=== PATIENT | male | born 1955 | race African-American/Black ===

== ENCOUNTER 2018-09-20 12:47 | Observation (INO) | payer MEDICARE, OTHER ==
[~2018-09-20] VITALS: Ht 172.7 cm; Wt 74.1 kg
[~2018-09-20 12:47] MED LIST: CALC667T2 PO; ERGO500014 PO; IBUP-1542 PO; SILV20CR13 TOP; SODI15OR8 PO; SODI650T PO
[2018-09-20] MEDS ORDERED: ZOLP5TAB PO (13:35)
[2018-09-20] MEDS ORDERED: BETH25TA39 PO (13:36)
[2018-09-20] MEDS ORDERED: SUCR1TAB56 PO (13:37)
[2018-09-20] MEDS ORDERED: DOCU-144 PO (13:38)
[2018-09-20] MEDS ORDERED: CLON-379 PO (13:38)
[2018-09-20] MEDS ORDERED: BISA10SU55 RC (13:39)
[2018-09-20] MEDS ORDERED: ENAL20TA73 PO (13:41)
[2018-09-20] MEDS ORDERED: EPOE40002 SC (13:42)
[2018-09-20] MEDS ORDERED: FER325 PO (13:44)
[2018-09-20] MEDS ORDERED: GLIP5TAB13 PO (13:45)
[2018-09-20] MEDS ORDERED: FOLI-49 PO (13:45)
[2018-09-20] MEDS ORDERED: HYDR-3671 PO (13:46)
[2018-09-20] MEDS ORDERED: POTA20TA15 PO (13:46)
[2018-09-20] MEDS ORDERED: POLY17PO6 PO (13:47)
[2018-09-20] MEDS ORDERED: NOVO3I SC (13:52)
[2018-09-20] MEDS ORDERED: MORP10SO PO (13:54)
[2018-09-20] MEDS ORDERED: METO25TA4 PO (13:55)
[2018-09-20] MEDS ORDERED: UDREG PO ×2 (13:57→13:58)
[2018-09-20] MEDS ORDERED: MAG355OR14 PO (13:58)
[2018-09-20] MEDS ORDERED: ACET-2047 PO (14:24)
[2018-09-20] MEDS ORDERED: ONDA4TAB8 PO (14:24)
[2018-09-20] MEDS ORDERED: PANT40TA3 PO (14:25)
[2018-09-20] MEDS ORDERED: NEPH PO (14:25)
[2018-09-20] MEDS ORDERED: PROT946L PO (14:26)
[2018-09-20] MEDS ORDERED: LABETALOL HCL 20MG INJ IV ONE (15:00)
--- NOTE | 2018-09-20 15:07 | ERD ---
ER Documentation Chief Complaint Chief Complaint aloc hypoglycemic and htn HPI Patient is a 63-year-old male with dialysis, diabetes, and hypertension who presents with altered mental status. He was found to have a blood sugar of 24. He was given D50 and now blood sugar was 144. He was more awake and alert. Blood pressure was elevated at 200/100. He did miss dialysis yesterday. He does have a primary doctor. He was brought in by ambulance. [facility]. ROS All systems reviewed and are negative except as per history of present illness. Medications Home Meds Reported Medications Protein Supplement (Promod) 946 Ml Liquid, 30 ML PO AC A 09/20/18 Pantoprazole* (Protonix*) 40 Mg Tablet.dr, 40 MG PO BID, TAB 09/20/18 Multivit/Ca Carb/B Cmplx/Fa* (Cee-Oumar*) 1 Tab Tab, 1 TAB PO DAILY, TAB 09/20/18 Acetaminophen* (Acetaminophen*) 650 Mg Tablet, 650 MG PO Q6H PRN for PAIN AND OR ELEVATED TEMP, #30 TAB 09/20/18 Ondansetron Hcl* (Zofran*) 4 Mg Tablet, 4 MG PO Q6H PRN for NAUSEA AND OR VOMITING, TAB 09/20/18 Mag Hydrox/Al Hydrox/Simeth (Maalox Advanced Suspension) 355 Ml Oral.susp, 30 ML PO Q6 PRN for GASTROINTESTINAL UPSET 09/20/18 Metoclopramide* (Reglan*) 10 Mg/10 Ml Soln, 5 MG PO Q6 PRN for GASTROINTESTINAL UPSET, ML 09/20/18 Metoclopramide* (Reglan*) 10 Mg/10 Ml Soln, 10 MG PO Q6 PRN for GASTROINTESTINAL UPSET, ML 09/20/18 Metoprolol Tartrate* (Lopressor*) 25 Mg Tablet, 25 MG PO DAILY, #60 TAB HOLD FOR SBP <110 OR HR <60 09/20/18 Morphine Sulfate* (Morphine* Liq) 10 Mg/5 Ml Solution, 2 MG PO Q6 PRN for SEVERE PAIN LEVEL 7-10, ML 09/20/18 Insulin Aspart* (Novolog Insulin Pen*) 100 Unit/Ml Soln, 0 SC .SLIDING SCALE AC, EA 39=204 = 0 UNITS 151-200 = 2 UNITS 201-250 = 4 UNITS 251-300 = 6 UNITS 301-350 = 8 UNITS 351-400 =10 UNITS > 400 12 UNITS AND CALL MD GIVE BEFORE MEALS AT AT BEDTIME 09/20/18 Polyethylene Glycol* (Miralax*) 17 Gm Powd.pack, 17 GM PO QPM PRN for CONSTIPATION, #30 PACKET 09/20/18 Potassium Chloride* (K-Dur*) 20 Meq Tab.prt.sr, 20 MEQ PO DAILY, TAB.SA 09/20/18 Hydralazine Hcl* (Hydralazine Hcl*) 25 Mg Tab, 25 MG PO Q6H PRN for ELEVATED BLOOD PRESSURE, #60 TAB GIVE IF SBP>160 09/20/18 Glipizide* (Glipizide*) 5 Mg Tablet, 5 MG PO BID, TAB 09/20/18 Folic Acid* (Folic Acid*) 1 Mg Tablet, 1 MG PO BID, TAB 09/20/18 Ferrous Sulfate* (Ferrous Sulfate*) 325 Mg Tabec, 325 MG PO BID, TAB 09/20/18 Epoetin jorge* (Epogen*) 4,000 Unit/1 Ml Vial, 4000 UNIT SC EVERY SUNDAY, VIAL 09/20/18 Enalapril Maleate* (Vasotec*) 20 Mg Tablet, 25 MG PO Q6 PRN for ELEVATED BLOOD PRESSURE, TAB GIVE IF SBP IS >140 09/20/18 Bisacodyl (Dulcolax) 10 Mg Supp.rect, 10 MG RC EVERY 48 HOURS PRN for CONSTIPATION, SUPP.RECT 09/20/18 Docusate Sodium* (Colace*) 100 Mg Capsule, 100 MG PO DAILY, #30 CAP 09/20/18 Clonidine Hcl* (Clonidine Hcl*) 0.1 Mg Tab, 0.1 MG PO Q6 PRN for ELEVATED BLOOD PRESSURE, TAB GIVE ONLY IF SBP >180 09/20/18 Sucralfate* (Carafate*) 1 Gm Tab, 1 GM PO AC MEALS AND BEDTIME, TAB FOUR TIMES DAILY 09/20/18 Bethanechol Chloride* (Urecholine*) 25 Mg Tab, 25 MG PO QID, TAB 09/20/18 Zolpidem Tartrate* (Ambien*) 5 Mg Tablet, 5 MG PO QHS PRN for INSOMNIA, #30 TAB END 09-21-18 09/20/18 Discontinued Reported Medications Silver Sulfadiazine* (SSD*) 1% - 20 Gm Cream.gm., 1 APPLIC TOP DAILY, TUB 08/25/15 Sodium Bicarbonate* (Sodium Bicarbonate*) 650 Mg Tablet, 650 MG PO BID, TAB 08/25/15 Calcium Acetate* (Phoslo*) 667 Mg Tablet, 667 MG PO TID, TAB 08/25/15 Ibuprofen* (Ibuprofen*) 600 Mg Tablet, 600 MG PO Q6H PRN for PAIN, TAB 08/25/15 Ergocalciferol* (Drisdol* (Vitamin D2)) 50,000 Unit Capsule, 62731 UNIT PO Q7D, CAP 08/25/15 Sodium Polystyrene Sulfonate* (Kayexalate*) 15 Gm/60 Ml Susp, GM PO DAILY, ML 08/25/15 Allergies Allergies: Coded Allergies: ampicillin (Verified Allergy, Unknown, 09/20/18) sulfamethoxazole (Verified Allergy, Unknown, 09/20/18) trimethoprim (Verified Allergy, Unknown, 09/20/18) PMhx/Soc History of Surgery: Yes (amputation of toes on steph foot) Anesthesia Reaction: No Hx Neurological Disorder: No Hx Respiratory Disorders: No Hx Cardiac Disorders: No Hx Miscellaneous Medical Probl: Yes (dm) Hx Alcohol Use: Yes Hx Substance Use: Yes (hx of marijuana use) Hx Tobacco Use: No Smoking Status: Never smoker FmHx Family History: diabetes Physical Exam Vitals Vital Signs Date Temp Pulse Resp B/P (MAP) Pulse Ox O2 O2 Flow FiO2 Time Delivery Rate 09/20/18 81 18 187/110 100 Room Air 15:00 (135) 09/20/18 Nasal 2 14:08 Cannula 09/20/18 98.2 96 20 210/121 100 12:56 (150) Physical Exam Const: No acute distress Head: Atraumatic Eyes: Normal Conjunctiva ENT: Normal External Ears, Nose and Mouth. Neck: Full range of motion. No meningismus. Resp: Clear to auscultation bilaterally Cardio: Regular rate and rhythm, no murmurs Abd: Soft, non tender, non distended. Normal bowel sounds Skin: No petechiae or rashes Back: No midline or flank tenderness Ext: No cyanosis, or edema Neur: Awake and alert Result Diagram: 09/20/18 1313 09/20/18 1313 Results 24 hrs Laboratory Tests Test 09/20/18 13:13 09/20/18 13:25 White Blood Count 10.5 10^3/ul Red Blood Count 3.50 10^6/ul Hemoglobin 10.4 g/dl Hematocrit 32.3 % Mean Corpuscular Volume 92.3 fl Mean Corpuscular Hemoglobin 29.7 pg Mean Corpuscular Hemoglobin Concent 32.2 g/dl Red Cell Distribution Width 14.8 % Platelet Count 311 10^3/UL Mean Platelet Volume 10.1 fl Immature Granulocytes % 0.500 % Neutrophils % 88.4 % Lymphocytes % 5.7 % Monocytes % 4.5 % Eosinophils % 0.6 % Basophils % 0.3 % Nucleated Red Blood Cells % 0.0 /100WBC Immature Granulocytes # 0.050 10^3/ul Neutrophils # 9.3 10^3/ul Lymphocytes # 0.6 10^3/ul Monocytes # 0.5 10^3/ul Eosinophils # 0.1 10^3/ul Basophils # 0.0 10^3/ul Nucleated Red Blood Cells # 0.0 10^3/ul Prothrombin Time 14.5 Sec Prothrombin Time Ratio 1.1 INR International Normalized Ratio 1.12 Activated Partial Thromboplast Time 47.9 Sec Sodium Level 140 mmol/L Potassium Level 5.0 mmol/L Chloride Level 100 mmol/L Carbon Dioxide Level 23 mmol/L Anion Gap 17 Blood Urea Nitrogen 67 mg/dl Creatinine 11.18 mg/dl Est Glomerular Filtrat Rate mL/min 6 mL/min Glucose Level 84 mg/dl Calcium Level 9.0 mg/dl Total Bilirubin 0.0 mg/dl Direct Bilirubin 0.00 mg/dl Indirect Bilirubin 0.0 mg/dl Aspartate Amino Transf (AST/SGOT) 17 IU/L Alanine Aminotransferase (ALT/SGPT) 8 IU/L Alkaline Phosphatase 174 IU/L Troponin I < 0.012 ng/ml Total Protein 7.8 g/dl Albumin 4.3 g/dl Globulin 3.50 g/dl Albumin/Globulin Ratio 1.22 POC Venous Lactate 0.9 mmol/L Current Medications Medications Dose Sig/Sonja Start Time Status Last (Trade) Ordered Route PRN Stop Time Admin Dose Reason Admin Labetalol 20 mg ONCE ONCE 09/20/18 DC 09/20/18 HCl IV 15:00 15:01 (Labetalol) 09/20/18 15:01 Procedures/MDM Chest x-ray read by radiology. EKG read by me: Rate/Rhythm: Regular rate and rhythm at a rate of 84 Intervals: Normal Impression: No evidence of ischemia or arrhythmia Patient is a 63-year-old male with dialysis, diabetes, and hypertension who presents with hypoglycemia and altered mental status. He is now awake and alert and has been given D50 and foods to keep his blood sugar elevated. The patient was given labetalol IV for his hypertension. His potassium is 5.0 and he is scheduled for dialysis tomorrow and therefore I do not believe the patient requires admission to the hospital at this time. The patient will be [facility]. He can return for any worsening symptoms. Departure Diagnosis: Primary Impression: Hypoglycemia Additional Impressions: HTN (hypertension) Hypertension type: essential hypertension Qualified Codes: I10 - Essential (primary) hypertension Altered level of consciousness Condition: Fair Patient Instructions: High Blood Pressure (Hypertension), Altered Loc Referrals: Your doctor Additional Instructions: Get your dialysis tomorrow. JAVIER WAN MD Sep 20, 2018 15:07
[2018-09-20] MEDS ORDERED: DEXTROSE 50% 50 ML SYRINGE ONE (17:24)
[2018-09-20] MEDS ORDERED: DEXTROSE 50% 50 ML SYRINGE IV STA (17:28)
[2018-09-20] MEDS ORDERED: ONDANSETRON 4 MG INJ IV PRN ×2 (18:00→18:30)
[2018-09-20] MEDS ORDERED: ACETAMINOPHEN 325 MG TAB PO PRN ×3 (18:00→18:30)
[2018-09-20] MEDS ORDERED: ZOLPIDEM 5 MG TAB PO PRN (18:30)
[2018-09-20] MEDS ORDERED: ENALAPRIL 20 MG TAB PO PRN (18:30)
[2018-09-20] MEDS ORDERED: NACL 0.9% 3 ML SYG IV SCH (18:30)
--- NOTE | 2018-09-20 18:31 | HP ---
Date/Time of Note Date/Time of Note DATE: 09/20/18 TIME: 18:21 Assessment/Plan VTE Prophylaxis SCD applied (from Nsg): Yes Pharmacological prophylaxis: NA/contraindicated Pharm contraindication: low risk/ambulating Lines/Catheters IV Catheter Type (from Nrsg): Saline Lock Assessment/Plan Assessment/Plan 63 yo man with ESRD missed dialysis, presents with hypoglycemia #Hypoglycemia - Probably due to missing dialysis while on glipizide and insulin. - Will admit; monitor blood sugar overnight. - Treat with intermittent D50 as needed. Avoid standing D5 or D10 to prevent fluid overload. - Probably will need to discontinue anti-glycemics after discharge. #ESRD - //Sat via R chest permacath - Consulted Dr. Franklin for dialysis DVT: SCDs GI: PPI Result Diagram: 09/20/18 1313 09/20/18 1313 HPI/ROS Admit Date/Time Admit Date/Time September 20, 2018 Hx of Present Illness Mr. Piedra is a 63 yo man with ESRD who BIBA from SNF for hypoglycemia. He normally gets dialysis sunday//sunday via R chest permacath; but missed his session this past for unclear reasons. Last successful dialysis was Sunday. He was found by nursing staff this morning to be lethargic and minimally responsive. Paramedics were called, blood sugar in the field was 24. Given D50 with increase to 140s. Both glipizide and short acting insulin are listed on his admission medication history but the patient denies receiving insulin. In the ED he was given food and juice but blood sugar continued to decline down to 54. Additionally he was noted be tremulous and have borderline high potassium at 5.0. A decision was made to admit for monitoring blood sugar; and to ensure he gets successful dialysis prior to discharge back to SNF. ROS He denies fatigue, weight loss, fevers, chills, headache, vision changes, dy sphagia, neck pain, chest pain/pressure/palpitations, dyspnea, cough, nausea, vomiting, abdominal pain, constipation, diarrhea. He continues to produce urine but does not have dysuria or urinary frequency. PMH/Family/Social Past Medical History ESRD on dialysis Diabetes Hypertension Medications Current Medications Ondansetron HCl (Zofran Inj) 4 mg BRIDGE ORDER PRN IV NAUSEA/VOMITING; Start 09/20/18 at 18:00; Stop 09/21/18 at 17:59 Acetaminophen (Tylenol Tab) 650 mg ER BRIDGE PRN PO .MILD PAIN 1-3 OR TEMP; Start 09/20/18 at 18:00; Stop 09/21/18 at 17:59 IV Flush (NS 3 ml) 3 ml PER PROTOCOL IV ; Start 09/20/18 at 18:30; Status UNV Ondansetron HCl (Zofran Inj) 4 mg Q6H PRN IV NAUSEA/VOMITING; Start 09/20/18 at 18:30; Status UNV Acetaminophen (Tylenol Tab) 650 mg Q6H PRN PO .PAIN 1-3 OR TEMP; Start 09/20/18 at 18:30; Status UNV Coded Allergies: ampicillin (Verified Allergy, Unknown, 09/20/18) sulfamethoxazole (Verified Allergy, Unknown, 09/20/18) trimethoprim (Verified Allergy, Unknown, 09/20/18) Past Surgical History Multiple foot debridements and toe amputations. 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 Social History Alcohol Use: none Smoking Status: Never smoker Drug Use: none Exam/Review of Systems Vital Signs Vitals Vital Signs Date Temp Pulse Resp B/P (MAP) Pulse Ox O2 O2 Flow FiO2 Time Delivery Rate 09/20/18 80 18 172/103 100 Nasal 2.0 17:51 (126) Cannula 09/20/18 98.1 16:01 Exam Exam Gen: Well developed man lying in gurney, lethargic but responding to questions. Neuro: Alert and oriented to name, year. Disoriented to location ("[place]") and date. Whole body low-frequency resting tremor. Eyes: PERRL, no icterus HEENT: Moist mucous membranes, clear oropharynx Neck: No lymphadenopathy, no masses Card: Regular rate and rhythm, no murmurs Pulm: Clear to auscultation bilaterally Abd: Soft, nontender, nondistended. No palpable hepatosplenomegaly. Ext: L foot Lisfranc amputation clean, well healed. R foot amputated 2 digits. Skin: Very dry but no foot ulcers. RAMBO HUGHES MD Sep 20, 2018 18:31
[2018-09-20 20:15] VITALS: BP 187/98; PULSE 84; RESP 20
[2018-09-20] MEDS: BETHANECHOL 25 MG TAB PO SCH (21:00)
[2018-09-20 21:30] VITALS: Ht 172.7 cm; Wt 74.1 kg
[2018-09-20 21:41] VITALS: BP 158/85; PULSE 80
[2018-09-20] MEDS: SUCRALFATE 1 GM TAB PO SCH (21:47)
[2018-09-20] MEDS: PANTOPRAZOLE (EC) 40 MG TAB PO SCH (21:47)
[2018-09-20] MEDS: FOLIC ACID 1 MG TAB PO SCH (21:47)
[2018-09-21] VITALS (20 sets, daily range): BP systolic 84–185; BP diastolic 63–112; PULSE 75–117; RESP 16–20
[2018-09-21] MEDS: morphine LIQ (10 MG/5 ML) CUP PO PRN (00:19)
[2018-09-21] MEDS: MULTIVIT/CA CARB/B CMPLX/FA TAB PO SCH ×2 (08:47→09:00)
[2018-09-21] MEDS: FOLIC ACID 1 MG TAB PO SCH ×3 (08:47→23:55)
[2018-09-21] MEDS: DOCUSATE SODIUM 100 MG CAP PO SCH ×2 (08:48→09:00)
[2018-09-21] MEDS: SUCRALFATE 1 GM TAB PO SCH ×5 (08:48→23:54)
[2018-09-21] MEDS: METOPROLOL 25 MG TAB PO SCH (08:48)
[2018-09-21] MEDS: PANTOPRAZOLE (EC) 40 MG TAB PO SCH ×3 (08:48→23:54)
[2018-09-21] MEDS: BETHANECHOL 25 MG TAB PO SCH ×4 (09:00→23:54)
[2018-09-21] MEDS: DEXTROSE 50% 50 ML SYRINGE IV PRN ×2 (10:15→12:10)
[2018-09-21] MEDS ORDERED: GLUCAGON 1 MG INJ IM PRN (10:30)
[2018-09-21] MEDS ORDERED: GLUCOSE GEL 15 GRAM TUBE BUCCAL PRN (10:30)
[2018-09-21] MEDS ORDERED: GLUCOSE GEL 15 GRAM TUBE PO PRN ×2 (10:30)
[2018-09-21] MEDS ORDERED: DEXTROSE 50% 50 ML SYRINGE IV PRN (10:30)
--- NOTE | 2018-09-21 12:51 | CONS ---
Assessment/Plan Assessment/Plan Assessment/Plan (Daily) 1. ESRD: chronic schedule TTS - HD today and will likely need hd tomorrow - routine permacath care 2. anemia: - epogen as needed with HD - monitor hg 3. Bone Mineral Disease: - monitor ca and phos 4. DM: - with hypoglycemic episode - hold oral hypoglycemics - monitor blood sugar 5. HTN: - cont current meds and titrate as needed Consultation Date/Type/Reason Admit Date/Time September 20, 2018 Type of Consult nephrology Reason for Consultation esrd Date/Time of Note DATE: 09/21/18 TIME: 12:47 Hx of Present Illness pt is a 63yo M with hx of ESRD, DM and HTN who presnts from his SNF due to hypoglycemia. He is scheduled to receive HD on TTS schedule but missed his HD on due to unclear reasons. He is unsure how long he has been on HD, probably a few weeks. He denies shortness of breath or n/v. He is still urinating. In the ER he was noted to have hypoglycemia and K of 5.3 ROS He denies fatigue, weight loss, fevers, chills, headache, vision changes, dysphagia, neck pain, chest pain/pressure/palpitations, dyspnea, cough, nausea, vomiting, abdominal pain, constipation, diarrhea. He continues to produce urine but does not have dysuria or urinary frequency. PMH/Family/Social PMH/Family/Social Past Medical History ESRD on dialysis Diabetes Hypertension Medications Current Medications Ondansetron HCl (Zofran Inj) 4 mg BRIDGE ORDER PRN IV NAUSEA/VOMITING; Start 09/20/18 at 18:00; Stop 09/21/18 at 17:59 Acetaminophen (Tylenol Tab) 650 mg ER BRIDGE PRN PO .MILD PAIN 1-3 OR TEMP; Start 09/20/18 at 18:00; Stop 09/21/18 at 17:59 IV Flush (NS 3 ml) 3 ml PER PROTOCOL IV ; Start 09/20/18 at 18:30; Status UNV Ondansetron HCl (Zofran Inj) 4 mg Q6H PRN IV NAUSEA/VOMITING; Start 09/20/18 at 18:30; Status UNV Acetaminophen (Tylenol Tab) 650 mg Q6H PRN PO .PAIN 1-3 OR TEMP; Start 09/20/18 at 18:30; Status UNV Coded Allergies: ampicillin (Verified Allergy, Unknown, 09/20/18) sulfamethoxazole (Verified Allergy, Unknown, 09/20/18) trimethoprim (Verified Allergy, Unknown, 09/20/18) Past Surgical History Multiple foot debridements and toe amputations. 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 Social History Alcohol Use: none Smoking Status: Never smoker Drug Use: none Past Medical History Home Meds Reported Medications Protein Supplement (Promod) 946 Ml Liquid, 30 ML PO AC A 09/20/18 Pantoprazole* (Protonix*) 40 Mg Tablet.dr, 40 MG PO BID, TAB 09/20/18 Multivit/Ca Carb/B Cmplx/Fa* (Cee-Oumar*) 1 Tab Tab, 1 TAB PO DAILY, TAB 09/20/18 Acetaminophen* (Acetaminophen*) 650 Mg Tablet, 650 MG PO Q6H PRN for PAIN AND OR ELEVATED TEMP, #30 TAB 09/20/18 Ondansetron Hcl* (Zofran*) 4 Mg Tablet, 4 MG PO Q6H PRN for NAUSEA AND OR VOMITING, TAB 09/20/18 Mag Hydrox/Al Hydrox/Simeth (Maalox Advanced Suspension) 355 Ml Oral.susp, 30 ML PO Q6 PRN for GASTROINTESTINAL UPSET 09/20/18 Metoclopramide* (Reglan*) 10 Mg/10 Ml Soln, 5 MG PO Q6 PRN for GASTROINTESTINAL UPSET, ML 09/20/18 Metoclopramide* (Reglan*) 10 Mg/10 Ml Soln, 10 MG PO Q6 PRN for GASTROINTESTINAL UPSET, ML 09/20/18 Metoprolol Tartrate* (Lopressor*) 25 Mg Tablet, 25 MG PO DAILY, #60 TAB HOLD FOR SBP <110 OR HR <60 09/20/18 Morphine Sulfate* (Morphine* Liq) 10 Mg/5 Ml Solution, 2 MG PO Q6 PRN for SEVERE PAIN LEVEL 7-10, ML 09/20/18 Insulin Aspart* (Novolog Insulin Pen*) 100 Unit/Ml Soln, 0 SC .SLIDING SCALE AC, EA 23=323 = 0 UNITS 151-200 = 2 UNITS 201-250 = 4 UNITS 251-300 = 6 UNITS 301-350 = 8 UNITS 351-400 =10 UNITS > 400 12 UNITS AND CALL MD GIVE BEFORE MEALS AT AT BEDTIME 4/19/19 Polyethylene Glycol* (Miralax*) 17 Gm Powd.pack, 17 GM PO QPM PRN for CONSTIPATION, #30 PACKET 09/20/18 Potassium Chloride* (K-Dur*) 20 Meq Tab.prt.sr, 20 MEQ PO DAILY, TAB.SA 09/20/18 Hydralazine Hcl* (Hydralazine Hcl*) 25 Mg Tab, 25 MG PO Q6H PRN for ELEVATED BLOOD PRESSURE, #60 TAB GIVE IF SBP>160 09/20/18 Glipizide* (Glipizide*) 5 Mg Tablet, 5 MG PO BID, TAB 09/20/18 Folic Acid* (Folic Acid*) 1 Mg Tablet, 1 MG PO BID, TAB 09/20/18 Ferrous Sulfate* (Ferrous Sulfate*) 325 Mg Tabec, 325 MG PO BID, TAB 09/20/18 Epoetin jorge* (Epogen*) 4,000 Unit/1 Ml Vial, 4000 UNIT SC EVERY SUNDAY, VIAL 09/20/18 Enalapril Maleate* (Vasotec*) 20 Mg Tablet, 25 MG PO Q6 PRN for ELEVATED BLOOD PRESSURE, TAB GIVE IF SBP IS >140 09/20/18 Bisacodyl (Dulcolax) 10 Mg Supp.rect, 10 MG RC EVERY 48 HOURS PRN for CONSTIPATION, SUPP.RECT 09/20/18 Docusate Sodium* (Colace*) 100 Mg Capsule, 100 MG PO DAILY, #30 CAP 09/20/18 Clonidine Hcl* (Clonidine Hcl*) 0.1 Mg Tab, 0.1 MG PO Q6 PRN for ELEVATED BLOOD PRESSURE, TAB GIVE ONLY IF SBP >180 09/20/18 Sucralfate* (Carafate*) 1 Gm Tab, 1 GM PO AC MEALS AND BEDTIME, TAB FOUR TIMES DAILY 09/20/18 Bethanechol Chloride* (Urecholine*) 25 Mg Tab, 25 MG PO QID, TAB 09/20/18 Zolpidem Tartrate* (Ambien*) 5 Mg Tablet, 5 MG PO QHS PRN for INSOMNIA, #30 TAB END 09-21-18 09/20/18 Discontinued Reported Medications Silver Sulfadiazine* (SSD*) 1% - 20 Gm Cream.gm., 1 APPLIC TOP DAILY, TUB 08/25/15 Sodium Bicarbonate* (Sodium Bicarbonate*) 650 Mg Tablet, 650 MG PO BID, TAB 08/25/15 Calcium Acetate* (Phoslo*) 667 Mg Tablet, 667 MG PO TID, TAB 08/25/15 Ibuprofen* (Ibuprofen*) 600 Mg Tablet, 600 MG PO Q6H PRN for PAIN, TAB 08/25/15 Ergocalciferol* (Drisdol* (Vitamin D2)) 50,000 Unit Capsule, 27832 UNIT PO Q7D, CAP 08/25/15 Sodium Polystyrene Sulfonate* (Kayexalate*) 15 Gm/60 Ml Susp, GM PO DAILY, ML 08/25/15 Medications Current Medications Ondansetron HCl (Zofran Inj) 4 mg BRIDGE ORDER PRN IV NAUSEA/VOMITING; Start 09/20/18 at 18:00; Stop 09/21/18 at 17:59 Acetaminophen (Tylenol Tab) 650 mg ER BRIDGE PRN PO .MILD PAIN 1-3 OR TEMP; Start 09/20/18 at 18:00; Stop 09/21/18 at 17:59 IV Flush (NS 3 ml) 3 ml PER PROTOCOL IV ; Start 09/20/18 at 18:30 Ondansetron HCl (Zofran Inj) 4 mg Q6H PRN IV NAUSEA/VOMITING; Start 09/20/18 at 18:30 Acetaminophen (Tylenol Tab) 650 mg Q6H PRN PO MILD PAIN(1-3)OR ELEVATED TEMP; Start 09/20/18 at 18:30 Bethanechol Chloride (Urecholine) 25 mg QID PO ; Start 09/20/18 at 21:00 Bisacodyl (Dulcolax Supp) 10 mg DAILY PRN [place] CONSTIPATION; Start 09/20/18 at 18:30 Clonidine (Catapres) 0.1 mg Q6 PRN PO ELEVATED BLOOD PRESSURE Last administered on 09/21/18at 02:46; Admin Dose 0.1 MG; Start 09/20/18 at 18:30 Docusate Sodium (Colace) 100 mg DAILY PO ; Start 09/21/18 at 09:00 Enalapril Maleate (Vasotec) 25 mg Q6 PRN PO ELEVATED BLOOD PRESSURE; Start 09/20/18 at 18:30 Folic Acid (Folic Acid) 1 mg BID PO Last administered on 09/20/18at 21:47; Admin Dose 1 MG; Start 09/20/18 at 21:00 Metoprolol Tartrate (Lopressor) 25 mg DAILY PO Last administered on 09/21/18at 08:48; Admin Dose 25 MG; Start 09/21/18 at 09:00 Morphine Sulfate (morphine) 2 mg Q6 PRN PO SEVERE PAIN LEVEL 7-10 Last administered on 09/21/18at 00:19; Admin Dose 2 MG; Start 09/20/18 at 18:30 Multivit/Ca Carb/ B Cmplx/FA/Prenat (Cee-Oumar) 1 tab DAILY PO ; Start 09/21/18 at 09:00 Pantoprazole (Protonix Tab) 40 mg BID PO Last administered on 09/20/18at 21:47; Admin Dose 40 MG; Start 09/20/18 at 21:00 Sucralfate (Carafate) 1 gm AC MEALS AND BEDTIME PO Last administered on 09/20/18at 21:47; Admin Dose 1 GM; Start 09/20/18 at 21:00 Zolpidem Tartrate (Ambien) 5 mg QHS PRN PO INSOMNIA; Start 09/20/18 at 18:30 Miscellaneous Information 1 ea NOTE XX ; Start 09/21/18 at 10:30 Glucose (Glutose) 15 gm Q15M PRN PO DECREASED GLUCOSE; Start 09/21/18 at 10:30 Glucose (Glutose) 22.5 gm Q15M PRN PO DECREASED GLUCOSE; Start 09/21/18 at 10:30 Dextrose (D50w Syringe) 25 ml Q15M PRN IV DECREASED GLUCOSE; Start 09/21/18 at 10:30 Dextrose (D50w Syringe) 50 ml Q15M PRN IV DECREASED GLUCOSE Last administered on 09/21/18at 12:10; Admin Dose 50 ML; Start 09/21/18 at 10:30 Glucagon (Glucagen) 1 mg Q15M PRN IM DECREASED GLUCOSE; Start 09/21/18 at 10:30 Glucose (Glutose) 15 gm Q15M PRN BUCCAL DECREASED GLUCOSE; Start 09/21/18 at 10:30 Allergies: Coded Allergies: ampicillin (Verified Allergy, Unknown, 09/20/18) sulfamethoxazole (Verified Allergy, Unknown, 09/20/18) trimethoprim (Verified Allergy, Unknown, 09/20/18) Social History Alcohol Use: none Smoking Status: Never smoker Drug Use: none Exam/Review of Systems Exam Vitals Vital Signs Date Temp Pulse Resp B/P (MAP) Pulse Ox O2 O2 Flow FiO2 Time Delivery Rate 09/21/18 87 162/88 09:53 (112) 09/21/18 98.2 16 97 Room Air 07:35 09/20/18 2.0 19:31 Exam gen nad cv rrr pulm ctab abd soft, nd, nt +bs ext: no edema Results Result Diagram: 09/21/18 0712 09/21/18 0712 Results 24hrs Laboratory Tests Test 09/20/18 13:13 09/20/18 13:25 09/20/18 16:51 09/20/18 17:23 White Blood Count 10.5 # Red Blood Count 3.50 L Hemoglobin 10.4 L Hematocrit 32.3 #L Mean Corpuscular 92.3 Volume Mean Corpuscular 29.7 Hemoglobin Mean Corpuscular 32.2 Hemoglobin Concent Red Cell 14.8 H Distribution Width Platelet Count 311 Mean Platelet Volume 10.1 # Immature 0.500 H Granulocytes % Neutrophils % 88.4 H Lymphocytes % 5.7 L Monocytes % 4.5 Eosinophils % 0.6 Basophils % 0.3 Nucleated Red Blood 0.0 Cells % Immature 0.050 H Granulocytes # Neutrophils # 9.3 H Lymphocytes # 0.6 L Monocytes # 0.5 Eosinophils # 0.1 Basophils # 0.0 Nucleated Red Blood 0.0 Cells # Prothrombin Time 14.5 Prothrombin Time 1.1 Ratio INR International 1.12 Normalized Ratio Activated 47.9 H Partial Thromboplast Time Sodium Level 140 Potassium Level 5.0 Chloride Level 100 Carbon Dioxide Level 23 Anion Gap 17 H Blood Urea Nitrogen 67 H Creatinine 11.18 H Est Glomerular 6 L Filtrat Rate mL/min Glucose Level 84 Calcium Level 9.0 Total Bilirubin 0.0 L Direct Bilirubin 0.00 Indirect Bilirubin 0.0 Aspartate Amino 17 Transf (AST/SGOT) Alanine 8 L Aminotransferase (AL T/SGPT) Alkaline Phosphatase 174 H Troponin I < 0.012 Total Protein 7.8 Albumin 4.3 Globulin 3.50 H Albumin/Globulin 1.22 Ratio POC Venous Lactate 0.9 Lactic Acid Level 1.1 Bedside Glucose 54 L Test 09/20/18 18:14 09/20/18 19:11 09/21/18 07:12 09/21/18 08:15 Bedside Glucose 137 99 42 *L White Blood Count 7.2 # Red Blood Count 2.96 L Hemoglobin 8.6 L Hematocrit 26.9 L Mean Corpuscular 90.9 Volume Mean Corpuscular 29.1 Hemoglobin Mean Corpuscular 32.0 Hemoglobin Concent Red Cell 14.6 H Distribution Width Platelet Count 264 Mean Platelet Volume 10.7 H Immature 0.700 H Granulocytes % Neutrophils % 71.7 Lymphocytes % 16.7 Monocytes % 9.4 Eosinophils % 1.1 Basophils % 0.4 Nucleated Red Blood 0.0 Cells % Immature 0.050 H Granulocytes # Neutrophils # 5.2 Lymphocytes # 1.2 Monocytes # 0.7 Eosinophils # 0.1 Basophils # 0.0 Nucleated Red Blood 0.0 Cells # Sodium Level 139 Potassium Level 5.3 H Chloride Level 98 Carbon Dioxide Level 23 Anion Gap 18 H Blood Urea Nitrogen 74 H Creatinine 11.48 H Est Glomerular 5 L Filtrat Rate mL/min Glucose Level 37 #*L Hemoglobin A1c 5.1 Calcium Level 8.1 L Phosphorus Level 5.5 H Magnesium Level 2.2 Total Bilirubin 0.2 Direct Bilirubin 0.00 Indirect Bilirubin 0.2 Aspartate Amino 37 # Transf (AST/SGOT) Alanine 17 Aminotransferase (AL T/SGPT) Alkaline Phosphatase 129 H Total Protein 6.5 # Albumin 3.7 Globulin 2.80 Albumin/Globulin 1.32 Ratio Test 09/21/18 08:44 09/21/18 09:11 09/21/18 09:55 09/21/18 10:39 Bedside Glucose 53 L 75 57 L 134 Test 09/21/18 10:55 09/21/18 11:22 09/21/18 12:01 Bedside Glucose 109 89 69 L Medications Medication Current Medications Ondansetron HCl (Zofran Inj) 4 mg BRIDGE ORDER PRN IV NAUSEA/VOMITING; Start 09/20/18 at 18:00; Stop 09/21/18 at 17:59 Acetaminophen (Tylenol Tab) 650 mg ER BRIDGE PRN PO .MILD PAIN 1-3 OR TEMP; Start 09/20/18 at 18:00; Stop 09/21/18 at 17:59 IV Flush (NS 3 ml) 3 ml PER PROTOCOL IV ; Start 09/20/18 at 18:30 Ondansetron HCl (Zofran Inj) 4 mg Q6H PRN IV NAUSEA/VOMITING; Start 09/20/18 at 18:30 Acetaminophen (Tylenol Tab) 650 mg Q6H PRN PO MILD PAIN(1-3)OR ELEVATED TEMP; Start 09/20/18 at 18:30 Bethanechol Chloride (Urecholine) 25 mg QID PO ; Start 09/20/18 at 21:00 Bisacodyl (Dulcolax Supp) 10 mg DAILY PRN [place] CONSTIPATION; Start 09/20/18 at 18:30 Clonidine (Catapres) 0.1 mg Q6 PRN PO ELEVATED BLOOD PRESSURE Last administered on 09/21/18at 02:46; Admin Dose 0.1 MG; Start 09/20/18 at 18:30 Docusate Sodium (Colace) 100 mg DAILY PO ; Start 09/21/18 at 09:00 Enalapril Maleate (Vasotec) 25 mg Q6 PRN PO ELEVATED BLOOD PRESSURE; Start 09/20/18 at 18:30 Folic Acid (Folic Acid) 1 mg BID PO Last administered on 09/20/18at 21:47; Admin Dose 1 MG; Start 09/20/18 at 21:00 Metoprolol Tartrate (Lopressor) 25 mg DAILY PO Last administered on 09/21/18at 08:48; Admin Dose 25 MG; Start 09/21/18 at 09:00 Morphine Sulfate (morphine) 2 mg Q6 PRN PO SEVERE PAIN LEVEL 7-10 Last administered on 09/21/18at 00:19; Admin Dose 2 MG; Start 09/20/18 at 18:30 Multivit/Ca Carb/ B Cmplx/FA/Prenat (Cee-Oumar) 1 tab DAILY PO ; Start 09/21/18 at 09:00 Pantoprazole (Protonix Tab) 40 mg BID PO Last administered on 09/20/18 21:47; Admin Dose 40 MG; Start 09/20/18 at 21:00 Sucralfate (Carafate) 1 gm AC MEALS AND BEDTIME PO Last administered on 09/20/18at 21:47; Admin Dose 1 GM; Start 09/20/18 at 21:00 Zolpidem Tartrate (Ambien) 5 mg QHS PRN PO INSOMNIA; Start 09/20/18 at 18:30 Miscellaneous Information 1 ea NOTE XX ; Start 09/21/18 at 10:30 Glucose (Glutose) 15 gm Q15M PRN PO DECREASED GLUCOSE; Start 09/21/18 at 10:30 Glucose (Glutose) 22.5 gm Q15M PRN PO DECREASED GLUCOSE; Start 09/21/18 at 10:30 Dextrose (D50w Syringe) 25 ml Q15M PRN IV DECREASED GLUCOSE; Start 09/21/18 at 10:30 Dextrose (D50w Syringe) 50 ml Q15M PRN IV DECREASED GLUCOSE Last administered on 09/21/18at 12:10; Admin Dose 50 ML; Start 09/21/18 at 10:30 Glucagon (Glucagen) 1 mg Q15M PRN IM DECREASED GLUCOSE; Start 09/21/18 at 10:30 Glucose (Glutose) 15 gm Q15M PRN BUCCAL DECREASED GLUCOSE; Start 09/21/18 at 10:30 LIAM JO MD Sep 21, 2018 12:51
--- NOTE | 2018-09-21 16:09 | PN ---
Date/Time of Note Date/Time of Note DATE: 09/21/18 TIME: 16:06 Assessment/Plan VTE Prophylaxis Risk score (from Nsg)>0 risk: 8 SCD applied (from Ns): Yes Pharmacological prophylaxis: NA/contraindicated Pharm contraindication: low risk/ambulating Lines/Catheters IV Catheter Type (from Nrsg): Saline Lock Urinary Cath still in place: No Assessment/Plan Assessment/Plan 63 yo man with ESRD missed dialysis, presents with hypoglycemia #Hypoglycemia - Probably due to missing dialysis while on glipizide and insulin. - Treat with intermittent D50 as needed. Avoid standing D5 or D10 to prevent fluid overload. - Probably will need to discontinue anti-glycemics after discharge. #ESRD - //Sat via R chest permacath - Consulted Dr. Franklin for dialysis DVT: SCDs GI: PPI Dispo: Anticipate discharge to SNF after dialysis when no longer requiring D50. Result Diagram: 09/21/18 0712 09/21/18 0712 Subjective 24 Hr Interval Summary Free Text/Dictation Continued dropping hypoglycemic this morning; required several more doses of D50. Patient refusing oral medications and food. He requested to speak to me in private; then said he was concerned the other staff were conspiring against him. He couldn't explain basis for this accusation and was not able to hold a rational conversation. Exam/Review of Systems Exam Vitals Vital Signs Date Temp Pulse Resp B/P (MAP) Pulse Ox O2 O2 Flow FiO2 Time Delivery Rate 09/21/18 97.5 75 18 168/87 95 Room Air 14:03 (114) 09/20/18 2.0 19:31 Exam Gen: Well developed man lying in gurney, lethargic but responding to questions. Eyes: PERRL, no icterus HEENT: Moist mucous membranes, clear oropharynx Neck: No lymphadenopathy, no masses Card: Regular rate and rhythm, no murmurs Pulm: Clear to auscultation bilaterally Abd: Soft, nontender, nondistended. No palpable hepatosplenomegaly. Ext: L foot Lisfranc amputation clean, well healed. R foot amputated 2 digits. Skin: Very dry but no foot ulcers. Results Results 24hrs Laboratory Tests Test 09/20/18 16:51 09/20/18 17:23 09/20/18 18:14 09/20/18 19:11 Lactic Acid Level 1.1 Bedside Glucose 54 L 137 99 Test 09/21/18 07:12 09/21/18 08:15 09/21/18 08:44 09/21/18 09:11 White Blood Count 7.2 # Red Blood Count 2.96 L Hemoglobin 8.6 L Hematocrit 26.9 L Mean Corpuscular 90.9 Volume Mean Corpuscular 29.1 Hemoglobin Mean Corpuscular 32.0 Hemoglobin Concent Red Cell 14.6 H Distribution Width Platelet Count 264 Mean Platelet Volume 10.7 H Immature 0.700 H Granulocytes % Neutrophils % 71.7 Lymphocytes % 16.7 Monocytes % 9.4 Eosinophils % 1.1 Basophils % 0.4 Nucleated Red Blood 0.0 Cells % Immature 0.050 H Granulocytes # Neutrophils # 5.2 Lymphocytes # 1.2 Monocytes # 0.7 Eosinophils # 0.1 Basophils # 0.0 Nucleated Red Blood 0.0 Cells # Sodium Level 139 Potassium Level 5.3 H Chloride Level 98 Carbon Dioxide Level 23 Anion Gap 18 H Blood Urea Nitrogen 74 H Creatinine 11.48 H Est Glomerular 5 L Filtrat Rate mL/min Glucose Level 37 #*L Hemoglobin A1c 5.1 Calcium Level 8.1 L Phosphorus Level 5.5 H Magnesium Level 2.2 Total Bilirubin 0.2 Direct Bilirubin 0.00 Indirect Bilirubin 0.2 Aspartate Amino 37 # Transf (AST/SGOT) Alanine 17 Aminotransferase (AL T/SGPT) Alkaline Phosphatase 129 H Total Protein 6.5 # Albumin 3.7 Globulin 2.80 Albumin/Globulin 1.32 Ratio Bedside Glucose 42 *L 53 L 75 Test 09/21/18 09:55 09/21/18 10:39 09/21/18 10:55 09/21/18 11:22 Bedside Glucose 57 L 134 109 89 Test 09/21/18 12:01 09/21/18 12:53 09/21/18 13:11 Bedside Glucose 69 L 130 107 Medications Medication Current Medications Ondansetron HCl (Zofran Inj) 4 mg BRIDGE ORDER PRN IV NAUSEA/VOMITING; Start 09/20/18 at 18:00; Stop 09/21/18 at 17:59 Acetaminophen (Tylenol Tab) 650 mg ER BRIDGE PRN PO .MILD PAIN 1-3 OR TEMP; Start 09/20/18 at 18:00; Stop 09/21/18 at 17:59 IV Flush (NS 3 ml) 3 ml PER PROTOCOL IV ; Start 09/20/18 at 18:30 Ondansetron HCl (Zofran Inj) 4 mg Q6H PRN IV NAUSEA/VOMITING; Start 09/20/18 at 18:30 Acetaminophen (Tylenol Tab) 650 mg Q6H PRN PO MILD PAIN(1-3)OR ELEVATED TEMP; Start 09/20/18 at 18:30 Bethanechol Chloride (Urecholine) 25 mg QID PO ; Start 09/20/18 at 21:00 Bisacodyl (Dulcolax Supp) 10 mg DAILY PRN [place] CONSTIPATION; Start 09/20/18 at 18:30 Clonidine (Catapres) 0.1 mg Q6 PRN PO ELEVATED BLOOD PRESSURE Last administered on 09/21/18at 02:46; Admin Dose 0.1 MG; Start 09/20/18 at 18:30 Docusate Sodium (Colace) 100 mg DAILY PO ; Start 09/21/18 at 09:00 Enalapril Maleate (Vasotec) 25 mg Q6 PRN PO ELEVATED BLOOD PRESSURE; Start 09/20/18 at 18:30 Folic Acid (Folic Acid) 1 mg BID PO Last administered on 09/20/18at 21:47; Admin Dose 1 MG; Start 09/20/18 at 21:00 Metoprolol Tartrate (Lopressor) 25 mg DAILY PO Last administered on 09/21/18at 08:48; Admin Dose 25 MG; Start 09/21/18 at 09:00 Morphine Sulfate (morphine) 2 mg Q6 PRN PO SEVERE PAIN LEVEL 7-10 Last administered on 09/21/18at 00:19; Admin Dose 2 MG; Start 09/20/18 at 18:30 Multivit/Ca Carb/ B Cmplx/FA/Prenat (Cee-Oumar) 1 tab DAILY PO ; Start 09/21/18 at 09:00 Pantoprazole (Protonix Tab) 40 mg BID PO Last administered on 09/20/18at 21:47; Admin Dose 40 MG; Start 09/20/18 at 21:00 Sucralfate (Carafate) 1 gm AC MEALS AND BEDTIME PO Last administered on 09/20/18at 21:47; Admin Dose 1 GM; Start 09/20/18 at 21:00 Zolpidem Tartrate (Ambien) 5 mg QHS PRN PO INSOMNIA; Start 09/20/18 at 18:30 Miscellaneous Information 1 ea NOTE XX ; Start 09/21/18 at 10:30 Glucose (Glutose) 15 gm Q15M PRN PO DECREASED GLUCOSE; Start 09/21/18 at 10:30 Glucose (Glutose) 22.5 gm Q15M PRN PO DECREASED GLUCOSE; Start 09/21/18 at 10:30 Dextrose (D50w Syringe) 25 ml Q15M PRN IV DECREASED GLUCOSE; Start 09/21/18 at 10:30 Dextrose (D50w Syringe) 50 ml Q15M PRN IV DECREASED GLUCOSE Last administered on 09/21/18at 12:10; Admin Dose 50 ML; Start 09/21/18 at 10:30 Glucagon (Glucagen) 1 mg Q15M PRN IM DECREASED GLUCOSE; Start 09/21/18 at 10:30 Glucose (Glutose) 15 gm Q15M PRN BUCCAL DECREASED GLUCOSE; Start 09/21/18 at 10:30 RAMBO HUGHES MD Sep 21, 2018 16:09
[2018-09-21] MEDS ORDERED: HALOPERIDOL 5 MG INJ IM STA (19:03)
[2018-09-21] MEDS ORDERED: HEPARIN 1000 UNITS/ML 10 ML INJ CATHETER ONE (21:30)
[2018-09-22] VITALS (20 sets, daily range): BP systolic 89–166; BP diastolic 59–88; PULSE 76–102; RESP 17–19
[2018-09-22] MEDS: ACCU-CHEK XX SCH ×4 (07:30→21:00)
[2018-09-22] MEDS: SUCRALFATE 1 GM TAB PO SCH ×5 (07:30→23:23)
[2018-09-22] MEDS: BETHANECHOL 25 MG TAB PO SCH ×5 (08:11→23:23)
[2018-09-22] MEDS: PANTOPRAZOLE (EC) 40 MG TAB PO SCH ×3 (08:11→23:23)
[2018-09-22] MEDS: MULTIVIT/CA CARB/B CMPLX/FA TAB PO SCH ×2 (08:11→09:00)
[2018-09-22] MEDS: FOLIC ACID 1 MG TAB PO SCH ×3 (08:11→23:23)
[2018-09-22] MEDS: DOCUSATE SODIUM 100 MG CAP PO SCH ×3 (08:11→11:12)
[2018-09-22] MEDS: METOPROLOL 25 MG TAB PO SCH (08:12)
--- NOTE | 2018-09-22 12:00 | PSY ---
Date/Time of Note Date/Time of Note DATE: 09/22/18 TIME: 11:45 Psychiatric Subjective Eval Consent Pt consented to telemedicine: Yes Subjective Evaluation Patient location: inpatient Chief Complaint: aloc hypoglycemic and htn Reason for consult: altered mental status History of present illness patient is a 63 yo male with ESRD who was admitted to the medical floor due to altered mental status and hypoglycemia after he had refused his dialysis. The nurse report that today he has been doing well, he was alert and oriented times 3, willing to eat, and drink and had accepted his dialysis treatment. He tells me that he was admitted because he was confused, he states that he is feeling good now and has been eating , he is alert and oriented to situation, time and person but does not know the name of the hospital , he denies any current manic or psychotic symptoms, but appeared to be paranoid 2 days ago when he was seen by his doctor. he has been sleeping well. he denies any si or hi , denies feeling depressed. Past psychiatric history denies Hospitalization: no Family History denies Medical history Problems Medical Problems: (1) Altered level of consciousness Status: Acute (2) Anemia Status: Acute (3) HTN (hypertension) Status: Acute (4) Hypoglycemia Status: Acute Allergies: Coded Allergies: ampicillin (Verified Allergy, Unknown, 09/20/18) sulfamethoxazole (Verified Allergy, Unknown, 09/20/18) trimethoprim (Verified Allergy, Unknown, 09/20/18) Substance Abuse Substance use: No known substance abuse Social History Marital status: single DPA/Conservatorship: No Psychiatric Objective Eval Review of Systems: Review of Systems: Not Applicable Physical Examination: Physical Examination: Applicable Sleep: Adequate Appetite: Adequate Energy: Adequate Interest: Adequate Mental Status Examination: Appearance: Groomed Eye Contact: Good Psychomotor Activity: Normal Behavior: Cooperative Speech: Clear AFFECT: Appropriate Mood: Appropriate/Full Though Process: Linear Thought Content: Normal Suicidal: No Homicidal: No Orientation: x3 Cognition: Alert Insight: Intact Judgement: Intact Attention Span: Intact Laboratory Results Laboratory Tests Test 09/20/18 13:13 09/20/18 13:25 09/20/18 16:51 09/20/18 17:23 White Blood Count 10.5 10^3/ul Red Blood Count 3.50 10^6/ul Hemoglobin 10.4 g/dl Hematocrit 32.3 % Mean Corpuscular 92.3 fl Volume Mean Corpuscular 29.7 pg Hemoglobin Mean Corpuscular 32.2 g/dl Hemoglobin Concen t Red Cell 14.8 % Distribution Width Platelet Count 311 10^3/UL Mean Platelet 10.1 fl Volume Immature 0.500 % Granulocytes % Neutrophils % 88.4 % Lymphocytes % 5.7 % Monocytes % 4.5 % Eosinophils % 0.6 % Basophils % 0.3 % Nucleated Red 0.0 /100WBC Blood Cells % Immature 0.050 10^3/ul Granulocytes # Neutrophils # 9.3 10^3/ul Lymphocytes # 0.6 10^3/ul Monocytes # 0.5 10^3/ul Eosinophils # 0.1 10^3/ul Basophils # 0.0 10^3/ul Nucleated Red 0.0 10^3/ul Blood Cells # Prothrombin Time 14.5 Sec Prothrombin Time 1.1 Ratio INR International 1.12 Normalized Ratio Activated 47.9 Sec Partial Thrombopl ast Time Sodium Level 140 mmol/L Potassium Level 5.0 mmol/L Chloride Level 100 mmol/L Carbon Dioxide 23 mmol/L Level Anion Gap 17 Blood Urea 67 mg/dl Nitrogen Creatinine 11.18 mg/dl Est Glomerular 6 mL/min Filtrat Rate mL/min Glucose Level 84 mg/dl Calcium Level 9.0 mg/dl Total Bilirubin 0.0 mg/dl Direct Bilirubin 0.00 mg/dl Indirect 0.0 mg/dl Bilirubin Aspartate Amino 17 IU/L Transf (AST/SGOT) Alanine 8 IU/L Aminotransferase (ALT/SGPT) Alkaline 174 IU/L Phosphatase Troponin I < 0.012 ng/ml Total Protein 7.8 g/dl Albumin 4.3 g/dl Globulin 3.50 g/dl Albumin/Globulin 1.22 Ratio POC Venous 0.9 mmol/L Lactate Lactic Acid Level 1.1 mmol/L Bedside Glucose 54 mg/dL Test 09/20/18 18:14 09/20/18 19:11 09/21/18 07:10 09/21/18 07:12 Bedside Glucose 137 mg/dL 99 mg/dL Hepatitis B NEGATIVE Surface Antigen Hepatitis B NEGATIVE Surface Antibody White Blood Count 7.2 10^3/ul Red Blood Count 2.96 10^6/ul Hemoglobin 8.6 g/dl Hematocrit 26.9 % Mean Corpuscular 90.9 fl Volume Mean Corpuscular 29.1 pg Hemoglobin Mean Corpuscular 32.0 g/dl Hemoglobin Concen t Red Cell 14.6 % Distribution Width Platelet Count 264 10^3/UL Mean Platelet 10.7 fl Volume Immature 0.700 % Granulocytes % Neutrophils % 71.7 % Lymphocytes % 16.7 % Monocytes % 9.4 % Eosinophils % 1.1 % Basophils % 0.4 % Nucleated Red 0.0 /100WBC Blood Cells % Immature 0.050 10^3/ul Granulocytes # Neutrophils # 5.2 10^3/ul Lymphocytes # 1.2 10^3/ul Monocytes # 0.7 10^3/ul Eosinophils # 0.1 10^3/ul Basophils # 0.0 10^3/ul Nucleated Red 0.0 10^3/ul Blood Cells # Sodium Level 139 mmol/L Potassium Level 5.3 mmol/L Chloride Level 98 mmol/L Carbon Dioxide 23 mmol/L Level Anion Gap 18 Blood Urea 74 mg/dl Nitrogen Creatinine 11.48 mg/dl Est Glomerular 5 mL/min Filtrat Rate mL/min Glucose Level 37 mg/dl Hemoglobin A1c 5.1 % Calcium Level 8.1 mg/dl Phosphorus Level 5.5 mg/dl Magnesium Level 2.2 mg/dl Total Bilirubin 0.2 mg/dl Direct Bilirubin 0.00 mg/dl Indirect 0.2 mg/dl Bilirubin Aspartate Amino 37 IU/L Transf (AST/SGOT) Alanine 17 IU/L Aminotransferase (ALT/SGPT) Alkaline 129 IU/L Phosphatase Total Protein 6.5 g/dl Albumin 3.7 g/dl Globulin 2.80 g/dl Albumin/Globulin 1.32 Ratio Test 09/21/18 08:15 09/21/18 08:44 09/21/18 09:11 09/21/18 09:55 Bedside Glucose 42 mg/dL 53 mg/dL 75 mg/dL 57 mg/dL Test 09/21/18 10:39 09/21/18 10:55 09/21/18 11:22 09/21/18 12:01 Bedside Glucose 134 mg/dL 109 mg/dL 89 mg/dL 69 mg/dL Test 09/21/18 12:53 09/21/18 13:11 09/21/18 17:29 09/21/18 21:48 Bedside Glucose 130 mg/dL 107 mg/dL 105 mg/dL 79 mg/dL Test 09/22/18 01:50 09/22/18 05:50 09/22/18 08:08 Bedside Glucose 126 mg/dL 150 mg/dL White Blood Count 6.2 10^3/ul Red Blood Count 3.27 10^6/ul Hemoglobin 9.7 g/dl Hematocrit 29.8 % Mean Corpuscular 91.1 fl Volume Mean Corpuscular 29.7 pg Hemoglobin Mean Corpuscular 32.6 g/dl Hemoglobin Concen t Red Cell 14.6 % Distribution Width Platelet Count 275 10^3/UL Mean Platelet 9.7 fl Volume Immature 0.500 % Granulocytes % Neutrophils % 69.7 % Lymphocytes % 15.7 % Monocytes % 12.1 % Eosinophils % 1.5 % Basophils % 0.5 % Nucleated Red 0.0 /100WBC Blood Cells % Immature 0.030 10^3/ul Granulocytes # Neutrophils # 4.3 10^3/ul Lymphocytes # 1.0 10^3/ul Monocytes # 0.8 10^3/ul Eosinophils # 0.1 10^3/ul Basophils # 0.0 10^3/ul Nucleated Red 0.0 10^3/ul Blood Cells # Sodium Level 139 mmol/L Potassium Level 5.0 mmol/L Chloride Level 98 mmol/L Carbon Dioxide 27 mmol/L Level Anion Gap 14 Blood Urea 35 mg/dl Nitrogen Creatinine 7.88 mg/dl Est Glomerular 8 mL/min Filtrat Rate mL/min Glucose Level 105 mg/dl Calcium Level 9.3 mg/dl Phosphorus Level 4.9 mg/dl Magnesium Level 2.2 mg/dl Assessment and Plan Assessment/Diagnosis Diagnosis delirium secondary to hypoglycemia resolved Recommendation/Plan Medication Management none at this time Multiple antipsychotics: No Discharge Disposition: Community (SNF) Legal Status: Release involuntary hold CHELA CORTES MD Sep 22, 2018 11:57
[2018-09-22] MEDS: BISACODYL 10 MG SUPP PR PRN (14:29)
--- NOTE | 2018-09-22 14:34 | CONS ---
Assessment/Plan Assessment/Plan Assessment/Plan (Daily) 1. ESRD: chronic schedule TTS - HD today for solute removal (missed HD , last HD yesterday) - routine permacath care 2. anemia: - epogen as needed with HD - monitor hg 3. Bone Mineral Disease: - monitor ca and phos 4. DM: - with hypoglycemic episode. improved - hold oral hypoglycemics - monitor blood sugar 5. HTN: - cont current meds and titrate as needed Consultation Date/Type/Reason Admit Date/Time Sep 20, 2018 at 17:54 Initial Consult Date Type of Consult nephrology Date/Time of Note DATE: 09/22/18 TIME: 14:32 24 HR Interval Summary Free Text/Dictation s/p HD yesterday denies shortness of breath or n/v d/w rn gen nad cv rrr pulm ctab abd soft, nd, nt +bs ext: no edema Exam/Review of Systems Exam Vitals Vital Signs Date Temp Pulse Resp B/P (MAP) Pulse Ox O2 O2 Flow FiO2 Time Delivery Rate 09/22/18 97.7 77 17 144/83 95 Room Air 13:40 (103) 09/20/18 2.0 19:31 Intake and Output 09/21/18 09/21/18 09/22/18 1414:59 22:59 06:59 IntakeIntake Total 150 ml OutputOutput Total 3000 ml BalanceBalance 150 ml -3000 ml Results Result Diagram: 09/22/18 0550 09/22/18 0550 Results 24hrs Laboratory Tests Test 09/21/18 17:29 09/21/18 21:48 09/22/18 01:50 09/22/18 05:50 Bedside Glucose 105 79 126 White Blood Count 6.2 Red Blood Count 3.27 L Hemoglobin 9.7 L Hematocrit 29.8 L Mean Corpuscular 91.1 Volume Mean Corpuscular 29.7 Hemoglobin Mean Corpuscular 32.6 Hemoglobin Concent Red Cell 14.6 H Distribution Width Platelet Count 275 Mean Platelet Volume 9.7 Immature 0.500 H Granulocytes % Neutrophils % 69.7 Lymphocytes % 15.7 Monocytes % 12.1 H Eosinophils % 1.5 Basophils % 0.5 Nucleated Red Blood 0.0 Cells % Immature 0.030 Granulocytes # Neutrophils # 4.3 Lymphocytes # 1.0 Monocytes # 0.8 Eosinophils # 0.1 Basophils # 0.0 Nucleated Red Blood 0.0 Cells # Sodium Level 139 Potassium Level 5.0 Chloride Level 98 Carbon Dioxide Level 27 Anion Gap 14 H Blood Urea Nitrogen 35 #H Creatinine 7.88 #H Est Glomerular 8 L Filtrat Rate mL/min Glucose Level 105 # Calcium Level 9.3 Phosphorus Level 4.9 Magnesium Level 2.2 Test 09/22/18 08:08 09/22/18 12:21 Bedside Glucose 150 202 Medications Medication Current Medications IV Flush (NS 3 ml) 3 ml PER PROTOCOL IV ; Start 09/20/18 at 18:30 Ondansetron HCl (Zofran Inj) 4 mg Q6H PRN IV NAUSEA/VOMITING; Start 09/20/18 at 18:30 Acetaminophen (Tylenol Tab) 650 mg Q6H PRN PO MILD PAIN(1-3)OR ELEVATED TEMP; Start 09/20/18 at 18:30 Bethanechol Chloride (Urecholine) 25 mg QID PO Last administered on 09/22/18at 11:12; Admin Dose 25 MG; Start 09/20/18 at 21:00 Bisacodyl (Dulcolax Supp) 10 mg DAILY PRN [place] CONSTIPATION Last administered on 09/22/18 14:29; Admin Dose 10 MG; Start 09/20/18 at 18:30 Clonidine (Catapres) 0.1 mg Q6 PRN PO ELEVATED BLOOD PRESSURE Last administered on 09/21/18at 02:46; Admin Dose 0.1 MG; Start 09/20/18 at 18:30 Docusate Sodium (Colace) 100 mg DAILY PO Last administered on 09/22/18at 11:12; Admin Dose 100 MG; Start 09/21/18 at 09:00 Enalapril Maleate (Vasotec) 25 mg Q6 PRN PO ELEVATED BLOOD PRESSURE; Start 09/20/18 at 18:30 Folic Acid (Folic Acid) 1 mg BID PO Last administered on 09/21/18at 23:55; Admin Dose 1 MG; Start 09/20/18 at 21:00 Metoprolol Tartrate (Lopressor) 25 mg DAILY PO Last administered on 09/22/18 08:12; Admin Dose 25 MG; Start 09/21/18 at 09:00 Morphine Sulfate (morphine) 2 mg Q6 PRN PO SEVERE PAIN LEVEL 7-10 Last administered on 09/21/18at 00:19; Admin Dose 2 MG; Start 09/20/18 at 18:30 Multivit/Ca Carb/ B Cmplx/FA/Prenat (Cee-Oumar) 1 tab DAILY PO ; Start 09/21/18 at 09:00 Pantoprazole (Protonix Tab) 40 mg BID PO Last administered on 09/21/18at 23:54; Admin Dose 40 MG; Start 09/20/18 at 21:00 Sucralfate (Carafate) 1 gm AC MEALS AND BEDTIME PO Last administered on 09/22/18at 11:12; Admin Dose 1 GM; Start 09/20/18 at 21:00 Zolpidem Tartrate (Ambien) 5 mg QHS PRN PO INSOMNIA; Start 09/20/18 at 18:30 Miscellaneous Information 1 ea NOTE XX ; Start 09/21/18 at 10:30 Glucose (Glutose) 15 gm Q15M PRN PO DECREASED GLUCOSE; Start 09/21/18 at 10:30 Glucose (Glutose) 22.5 gm Q15M PRN PO DECREASED GLUCOSE; Start 09/21/18 at 10:30 Dextrose (D50w Syringe) 25 ml Q15M PRN IV DECREASED GLUCOSE; Start 09/21/18 at 10:30 Dextrose (D50w Syringe) 50 ml Q15M PRN IV DECREASED GLUCOSE Last administered on 09/21/18at 12:10; Admin Dose 50 ML; Start 09/21/18 at 10:30 Glucagon (Glucagen) 1 mg Q15M PRN IM DECREASED GLUCOSE; Start 09/21/18 at 10:30 Glucose (Glutose) 15 gm Q15M PRN BUCCAL DECREASED GLUCOSE; Start 09/21/18 at 10:30 Diagnostic Test (Pha) (Accu-Chek) 1 ea AC MEALS AND BEDTIME XX ; Start 09/22/18 at 07:30 LIAM JO MD Sep 22, 2018 14:34
--- NOTE | 2018-09-22 16:03 | PN ---
Date/Time of Note Date/Time of Note DATE: 09/22/18 TIME: 16:00 Assessment/Plan VTE Prophylaxis Risk score (from Nsg)>0 risk: 4 SCD applied (from Nsg): Yes Pharmacological prophylaxis: NA/contraindicated Pharm contraindication: low risk/ambulating Lines/Catheters IV Catheter Type (from Nrsg): Perm-A-Cath Urinary Cath still in place: No Assessment/Plan Assessment/Plan 63 yo man with ESRD missed dialysis, presents with hypoglycemia #Hypoglycemia - Probably due to missing dialysis while on glipizide and insulin. - Since dialysis has not required D50 and running slightly hyperglycemic to 200s. - Will closely monitor, no long-acting insulin, hold off on short acting for now. #ESRD - //Sat via R chest permacath - Consulted Dr. Franklin for dialysis - HD yesterday and today. DVT: SCDs GI: PPI Dispo: Anticipate discharge to SNF after dialysis if blood sugar is under control off insulin and D50. Result Diagram: 09/22/18 0550 09/22/18 0550 Subjective 24 Hr Interval Summary Free Text/Dictation Patient agitated last night, kept getting up and pacing, again refusing food. When dialysis arrived he refused that also, I ordered Haldol IM but apparently he didn't need it and eventually they talked him into it. Today patient appearing much better, more open, no complaints. Exam/Review of Systems Exam Vitals Vital Signs Date Temp Pulse Resp B/P (MAP) Pulse Ox O2 O2 Flow FiO2 Time Delivery Rate 09/22/18 97.7 77 17 144/83 95 Room Air 13:40 (103) 09/20/18 2.0 19:31 Intake and Output 09/21/18 09/21/18 09/22/18 1515:00 23:00 07:00 IntakeIntake Total 150 ml OutputOutput Total 3000 ml BalanceBalance 150 ml -3000 ml Exam Gen: Well developed man lying in bed awake and alert. Eyes: PERRL, no icterus HEENT: Moist mucous membranes, clear oropharynx Neck: No lymphadenopathy, no masses Card: Regular rate and rhythm, no murmurs Pulm: Clear to auscultation bilaterally Abd: Soft, nontender, nondistended. No palpable hepatosplenomegaly. Ext: L foot Lisfranc amputation clean, well healed. R foot amputated 2 digits. Results Results 24hrs Laboratory Tests Test 09/21/18 17:29 09/21/18 21:48 09/22/18 01:50 09/22/18 05:50 Bedside Glucose 105 79 126 White Blood Count 6.2 Red Blood Count 3.27 L Hemoglobin 9.7 L Hematocrit 29.8 L Mean Corpuscular 91.1 Volume Mean Corpuscular 29.7 Hemoglobin Mean Corpuscular 32.6 Hemoglobin Concent Red Cell 14.6 H Distribution Width Platelet Count 275 Mean Platelet Volume 9.7 Immature 0.500 H Granulocytes % Neutrophils % 69.7 Lymphocytes % 15.7 Monocytes % 12.1 H Eosinophils % 1.5 Basophils % 0.5 Nucleated Red Blood 0.0 Cells % Immature 0.030 Granulocytes # Neutrophils # 4.3 Lymphocytes # 1.0 Monocytes # 0.8 Eosinophils # 0.1 Basophils # 0.0 Nucleated Red Blood 0.0 Cells # Sodium Level 139 Potassium Level 5.0 Chloride Level 98 Carbon Dioxide Level 27 Anion Gap 14 H Blood Urea Nitrogen 35 #H Creatinine 7.88 #H Est Glomerular 8 L Filtrat Rate mL/min Glucose Level 105 # Calcium Level 9.3 Phosphorus Level 4.9 Magnesium Level 2.2 Test 09/22/18 08:08 09/22/18 12:21 Bedside Glucose 150 202 Medications Medication Current Medications IV Flush (NS 3 ml) 3 ml PER PROTOCOL IV ; Start 09/20/18 at 18:30 Ondansetron HCl (Zofran Inj) 4 mg Q6H PRN IV NAUSEA/VOMITING; Start 09/20/18 at 18:30 Acetaminophen (Tylenol Tab) 650 mg Q6H PRN PO MILD PAIN(1-3)OR ELEVATED TEMP; Start 09/20/18 at 18:30 Bethanechol Chloride (Urecholine) 25 mg QID PO Last administered on 09/22/18at 11:12; Admin Dose 25 MG; Start 09/20/18 at 21:00 Bisacodyl (Dulcolax Supp) 10 mg DAILY PRN [place] CONSTIPATION Last administered on 09/22/18at 14:29; Admin Dose 10 MG; Start 09/20/18 at 18:30 Clonidine (Catapres) 0.1 mg Q6 PRN PO ELEVATED BLOOD PRESSURE Last administered on 09/21/18at 02:46; Admin Dose 0.1 MG; Start 09/20/18 at 18:30 Docusate Sodium (Colace) 100 mg DAILY PO Last administered on 09/22/18at 11:12; Admin Dose 100 MG; Start 09/21/18 at 09:00 Enalapril Maleate (Vasotec) 25 mg Q6 PRN PO ELEVATED BLOOD PRESSURE; Start 09/20/18 at 18:30 Folic Acid (Folic Acid) 1 mg BID PO Last administered on 09/21/18at 23:55; Admin Dose 1 MG; Start 09/20/18 at 21:00 Metoprolol Tartrate (Lopressor) 25 mg DAILY PO Last administered on 09/22/18 08:12; Admin Dose 25 MG; Start 09/21/18 at 09:00 Morphine Sulfate (morphine) 2 mg Q6 PRN PO SEVERE PAIN LEVEL 7-10 Last administered on 09/21/18 00:19; Admin Dose 2 MG; Start 09/20/18 at 18:30 Multivit/Ca Carb/ B Cmplx/FA/Prenat (Cee-Oumar) 1 tab DAILY PO ; Start 09/21/18 at 09:00 Pantoprazole (Protonix Tab) 40 mg BID PO Last administered on 09/21/18at 23:54; Admin Dose 40 MG; Start 09/20/18 at 21:00 Sucralfate (Carafate) 1 gm AC MEALS AND BEDTIME PO Last administered on 09/22/18at 11:12; Admin Dose 1 GM; Start 09/20/18 at 21:00 Zolpidem Tartrate (Ambien) 5 mg QHS PRN PO INSOMNIA; Start 09/20/18 at 18:30 Miscellaneous Information 1 ea NOTE XX ; Start 09/21/18 at 10:30 Glucose (Glutose) 15 gm Q15M PRN PO DECREASED GLUCOSE; Start 09/21/18 at 10:30 Glucose (Glutose) 22.5 gm Q15M PRN PO DECREASED GLUCOSE; Start 09/21/18 at 10:30 Dextrose (D50w Syringe) 25 ml Q15M PRN IV DECREASED GLUCOSE; Start 09/21/18 at 10:30 Dextrose (D50w Syringe) 50 ml Q15M PRN IV DECREASED GLUCOSE Last administered on 09/21/18at 12:10; Admin Dose 50 ML; Start 09/21/18 at 10:30 Glucagon (Glucagen) 1 mg Q15M PRN IM DECREASED GLUCOSE; Start 09/21/18 at 10:30 Glucose (Glutose) 15 gm Q15M PRN BUCCAL DECREASED GLUCOSE; Start 09/21/18 at 10:30 Diagnostic Test (Pha) (Accu-Chek) 1 ea AC MEALS AND BEDTIME XX ; Start 09/22/18 at 07:30 RAMBO HUGHES MD Sep 22, 2018 16:03
[2018-09-22] MEDS ORDERED: HEPARIN 1000 UNITS/ML 10 ML INJ CATHETER SCH (19:30)
[2018-09-23 02:00] VITALS: BP 181/85; PULSE 85; RESP 18
[2018-09-23 02:59] VITALS: BP 146/84
[2018-09-23] MEDS: ACCU-CHEK XX SCH ×2 (07:30→11:30)
[2018-09-23] MEDS: PANTOPRAZOLE (EC) 40 MG TAB PO SCH (08:32)
[2018-09-23] MEDS: MULTIVIT/CA CARB/B CMPLX/FA TAB PO SCH (08:32)
[2018-09-23] MEDS: SUCRALFATE 1 GM TAB PO SCH ×2 (08:32→11:42)
[2018-09-23] MEDS: DOCUSATE SODIUM 100 MG CAP PO SCH (08:32)
[2018-09-23] MEDS: FOLIC ACID 1 MG TAB PO SCH (08:32)
[2018-09-23] MEDS: METOPROLOL 25 MG TAB PO SCH (08:33)
[2018-09-23] MEDS: BETHANECHOL 25 MG TAB PO SCH ×3 (08:33→16:42)
--- NOTE | 2018-09-23 08:37 | PN ---
DATE: 09/23/2018 SUBJECTIVE: The patient is alert and oriented x1, confused. The patient was noted to be hypertensiv e overnight. No other events noted. No hemoptysis, hematemesis or hematochezia. The patient had he modialysis yesterday with 1.5 liters removed. OBJECTIVE: VITAL SIGNS: Blood pressure is 146/84, respirations 18, pulse 85, temperature 99.1. HEENT: Head is normocephalic. NECK: Supple. HEART: Regular rate. LUNGS: Show diminished breath sounds at the base. ABDOMEN: Soft, nontender to palpation without rebound or guarding. EXTREMITIES: Negative for clubbing, cyanosis, no edema. DERMATOLOGIC: No rashes. MUSCULOSKELETAL: No joint effusion. NEUROLOGIC: No change in exam. MEDICATIONS: Reviewed. LABORATORY DATA: Reviewed. IMAGING STUDIES: Reviewed. ASSESSMENT AND PLAN: This is a 63-year-old male who presents with: 1. End-stage renal disease. The patient is on dialysis Sunday, and Sunday. The patient had hemodialysis yesterday, tolerated well. We will anticipate dialysis for tomorrow. 2. Anemia. Monitor hemoglobin and hematocrit levels. 3. Mineral bone disorder, monitor calcium and phosphorus levels. 4. Hypertension. Continue current blood pressure regimen. Continue ultrafiltration with dialysis. 5. Hypoglycemia. The patient's diabetic regimen has been adjusted. Continue to monitor. 6. Encephalopathy. Continue to monitor. Follow up with psychiatry. Dictated By: MATTHEW FORRESTER DO NR/NTS Conf#: [id number] DID#: [id number] CC: MATTHEW FORRESTER DO; RAMBO HUGHES MD;*EndCC*
[2018-09-23 08:55] VITALS: BP 151/77; PULSE 77; RESP 18
--- NOTE | 2018-09-23 11:20 | PDOCDIS ---
Discharge Instructions CONDITION [id number] Patient Condition: [id number] Stable MARCOS FERRARO Sep 23, 2018 11:20
--- NOTE | 2018-09-23 11:23 | DS ---
Date/Time of Note Date/Time of Note DATE: 09/23/18 TIME: 11:20 Discharge Summary Admission/Discharge Info Admit Date/Time Sep 20, 2018 at 17:54 Discharge Date/Time Patient Condition: Stable Hx of Present Illness 63 yo man with ESRD who BIBA from SNF for hypoglycemia. He normally gets dialysis sunday//sunday via R chest permacath; but missed his session this past for unclear reasons. Last successful dialysis was Sunday. He was found by nursing staff this morning to be lethargic and minimally responsive. Paramedics were called, blood sugar in the field was 24. Given D50 with increase to 140s. Both glipizide and short acting insulin are listed on his admission medication history but the patient denies receiving insulin. In the ED he was given food and juice but blood sugar continued to decline down to 54. Additionally he was noted be tremulous and have borderline high potassium at 5.0. A decision was made to admit for monitoring blood sugar; and to ensure he gets successful dialysis prior to discharge back to SNF. Hospital Course Patient was admitted and seen by renal team during this hospital stay. Patient underwent dialysis. Patient's shortness of breath symptoms improved. Sugars also improved after adjustments were made to the insulin regimen. Patient was able to tolerate diet, vital signs are stable on the day of discharge. Hemoglobin was stable as well and patient's hepatitis panel was checked as well as which did not show any acute findings. Patient will be discharged back to assisted facility later today in improved condition. See printed medicine reconciliation sheet for full list of discharge medications. Home Meds Reported Medications Protein Supplement (Promod) 946 Ml Liquid, 30 ML PO AC A 09/20/18 Pantoprazole* (Protonix*) 40 Mg Tablet.dr, 40 MG PO BID, TAB 09/20/18 Multivit/Ca Carb/B Cmplx/Fa* (Cee-Oumar*) 1 Tab Tab, 1 TAB PO DAILY, TAB 09/20/18 Acetaminophen* (Acetaminophen*) 650 Mg Tablet, 650 MG PO Q6H PRN for PAIN AND OR ELEVATED TEMP, #30 TAB 09/20/18 Ondansetron Hcl* (Zofran*) 4 Mg Tablet, 4 MG PO Q6H PRN for NAUSEA AND OR VOMITING, TAB 09/20/18 Mag Hydrox/Al Hydrox/Simeth (Maalox Advanced Suspension) 355 Ml Oral.susp, 30 ML PO Q6 PRN for GASTROINTESTINAL UPSET 09/20/18 Metoclopramide* (Reglan*) 10 Mg/10 Ml Soln, 5 MG PO Q6 PRN for GASTROINTESTINAL UPSET, ML 09/20/18 Metoclopramide* (Reglan*) 10 Mg/10 Ml Soln, 10 MG PO Q6 PRN for GASTROINTESTINAL UPSET, ML 09/20/18 Metoprolol Tartrate* (Lopressor*) 25 Mg Tablet, 25 MG PO DAILY, #60 TAB HOLD FOR SBP <110 OR HR <60 09/20/18 Morphine Sulfate* (Morphine* Liq) 10 Mg/5 Ml Solution, 2 MG PO Q6 PRN for SEVERE PAIN LEVEL 7-10, ML 09/20/18 Insulin Aspart* (Novolog Insulin Pen*) 100 Unit/Ml Soln, 0 SC .SLIDING SCALE AC, EA 22=960 = 0 UNITS 151-200 = 2 UNITS 201-250 = 4 UNITS 251-300 = 6 UNITS 301-350 = 8 UNITS 351-400 =10 UNITS > 400 12 UNITS AND CALL MD GIVE BEFORE MEALS AT AT BEDTIME 09/20/18 Polyethylene Glycol* (Miralax*) 17 Gm Powd.pack, 17 GM PO QPM PRN for CONSTIPATION, #30 PACKET 09/20/18 Potassium Chloride* (K-Dur*) 20 Meq Tab.prt.sr, 20 MEQ PO DAILY, TAB.SA 09/20/18 Hydralazine Hcl* (Hydralazine Hcl*) 25 Mg Tab, 25 MG PO Q6H PRN for ELEVATED BLOOD PRESSURE, #60 TAB GIVE IF SBP>160 09/20/18 Glipizide* (Glipizide*) 5 Mg Tablet, 5 MG PO BID, TAB 09/20/18 Folic Acid* (Folic Acid*) 1 Mg Tablet, 1 MG PO BID, TAB 09/20/18 Ferrous Sulfate* (Ferrous Sulfate*) 325 Mg Tabec, 325 MG PO BID, TAB 09/20/18 Epoetin jorge* (Epogen*) 4,000 Unit/1 Ml Vial, 4000 UNIT SC EVERY SUNDAY, VIAL 09/20/18 Enalapril Maleate* (Vasotec*) 20 Mg Tablet, 25 MG PO Q6 PRN for ELEVATED BLOOD PRESSURE, TAB GIVE IF SBP IS >140 09/20/18 Bisacodyl (Dulcolax) 10 Mg Supp.rect, 10 MG RC EVERY 48 HOURS PRN for CONSTIPATION, SUPP.RECT 09/20/18 Docusate Sodium* (Colace*) 100 Mg Capsule, 100 MG PO DAILY, #30 CAP 09/20/18 Clonidine Hcl* (Clonidine Hcl*) 0.1 Mg Tab, 0.1 MG PO Q6 PRN for ELEVATED BLOOD PRESSURE, TAB GIVE ONLY IF SBP >180 09/20/18 Sucralfate* (Carafate*) 1 Gm Tab, 1 GM PO AC MEALS AND BEDTIME, TAB FOUR TIMES DAILY 09/20/18 Bethanechol Chloride* (Urecholine*) 25 Mg Tab, 25 MG PO QID, TAB 09/20/18 Zolpidem Tartrate* (Ambien*) 5 Mg Tablet, 5 MG PO QHS PRN for INSOMNIA, #30 TAB END 09-21-18 09/20/18 Discontinued Reported Medications Silver Sulfadiazine* (SSD*) 1% - 20 Gm Cream.gm., 1 APPLIC TOP DAILY, TUB 08/25/15 Sodium Bicarbonate* (Sodium Bicarbonate*) 650 Mg Tablet, 650 MG PO BID, TAB 08/25/15 Calcium Acetate* (Phoslo*) 667 Mg Tablet, 667 MG PO TID, TAB 08/25/15 Ibuprofen* (Ibuprofen*) 600 Mg Tablet, 600 MG PO Q6H PRN for PAIN, TAB 08/25/15 Ergocalciferol* (Drisdol* (Vitamin D2)) 50,000 Unit Capsule, 83961 UNIT PO Q7D, CAP 08/25/15 Sodium Polystyrene Sulfonate* (Kayexalate*) 15 Gm/60 Ml Susp, GM PO DAILY, ML 08/25/15 Primary Care Provider Care Physician No Primary Time spent on discharge: > 30 minutes Pending Labs Laboratory Tests Test 09/22/18 12:21 09/22/18 17:09 09/22/18 23:21 09/23/18 01:54 Bedside 202 176 102 131 Glucose mg/dL (70-220) mg/dL (70-220) mg/dL (70-220) mg/dL (70-220) Test 09/23/18 08:17 Bedside 113 Glucose mg/dL (70-220) MARCOS FERRARO Sep 23, 2018 11:23
[2018-09-23] MEDS: morphine LIQ (10 MG/5 ML) CUP PO PRN (11:42)
[2018-09-23] MEDS: BISACODYL 10 MG SUPP PR PRN (11:52)
[2018-09-23 15:26] VITALS: BP 170/89; PULSE 86; RESP 18
== END 2018-09-23 17:22 ==
LOC: E/R 12:47 → INTOOBSV 17:54 → PP2 17:54 → EDBEDREQ 18:43 → PP2 09-21 19:02 → OBSVTOIN 09-23 10:55 → INTOOBSV 09-23 10:55
PROVIDERS: ADMIT Internal Medicine; ATTEND Hospitalist
DX: E11.649 Type 2 diabetes mellitus with hypoglycemia without coma (principal); I12.0 Hypertensive chronic kidney disease with stage 5 chronic kidney disease or end stage renal disease; E11.22 Type 2 diabetes mellitus with diabetic chronic kidney disease; N18.6 End stage renal disease; Z99.2 Dependence on renal dialysis; Z79.4 Long term (current) use of insulin; D64.9 Anemia, unspecified; G93.40 Encephalopathy, unspecified; M89.8X9 Other specified disorders of bone, unspecified site
CPT/HCPCS: 36415; 71045; 80048; 80053; 82962; 83036; 83605; 83735; 84100; 84484; 85025; 85610; 85730; 86706; 87040; 87081; 87340; 90935; 93005; 96374; 96375; 99285; G0378; J1644; 99217; J1630

== ENCOUNTER 2019-01-04 17:59 | Emergency (ER) | payer MEDICARE, OTHER ==
[~2019-01-04] VITALS: Ht 170.2 cm; Wt 70.0 kg
[~2019-01-04 17:59] MED LIST changes: +ACET-2047 PO; +BETH25TA39 PO; +BISA10SU55 RC; -CALC667T2 PO; +CLON-379 PO; +DOCU-144 PO; +ENAL20TA73 PO; +EPOE40002 SC; -ERGO500014 PO; +FER325 PO; +FOLI-49 PO; +GLIP5TAB13 PO; +HYDR-3671 PO; -IBUP-1542 PO; +MAG355OR14 PO; +METO25TA4 PO; +MORP10SO PO; +NEPH PO; +NOVO3I SC; +ONDA4TAB8 PO; +PANT40TA3 PO; +POLY17PO6 PO; +POTA20TA15 PO; +PROT946L PO; -SILV20CR13 TOP; -SODI15OR8 PO; -SODI650T PO; +SUCR1TAB56 PO; +UDREG PO; +ZOLP5TAB PO
[2019-01-04 18:03] VITALS: Ht 170.2 cm; Wt 70.0 kg
--- NOTE | 2019-01-04 18:18 | ERD ---
ER Documentation Chief Complaint Chief Complaint BIB [facility] FOR [facility] BLEEDING HD FISTULA. PRESSURE DRESSING IN PLACE HPI 64-year-old male with history of hypertension, diabetes and end-stage renal disease on dialysis presents to the ED with bleeding from AV shunt after dialysis today. Attempt to control bleeding with pressure was unsuccessful and patient was brought to the ED via rescue ambulance for further evaluation. Pressure dressing was placed by paramedics. He is otherwise asymptomatic. Denies chest pain, palpitations, shortness of breath or pain. No fevers or chills. ROS All systems reviewed and are negative except as per history of present illness. Medications Home Meds Reported Medications Protein Supplement (Promod) 946 Ml Liquid, 30 ML PO AC A 09/20/18 Pantoprazole* (Protonix*) 40 Mg Tablet.dr, 40 MG PO BID, TAB 09/20/18 Multivit/Ca Carb/B Cmplx/Fa* (Cee-Oumar*) 1 Tab Tab, 1 TAB PO DAILY, TAB 09/20/18 Acetaminophen* (Acetaminophen*) 650 Mg Tablet, 650 MG PO Q6H PRN for PAIN AND OR ELEVATED TEMP, #30 TAB 09/20/18 Ondansetron Hcl* (Zofran*) 4 Mg Tablet, 4 MG PO Q6H PRN for NAUSEA AND OR VOMITING, TAB 09/20/18 Mag Hydrox/Al Hydrox/Simeth (Maalox Advanced Suspension) 355 Ml Oral.susp, 30 ML PO Q6 PRN for GASTROINTESTINAL UPSET 09/20/18 Metoclopramide* (Reglan*) 10 Mg/10 Ml Soln, 5 MG PO Q6 PRN for GASTROINTESTINAL UPSET, ML 09/20/18 Metoclopramide* (Reglan*) 10 Mg/10 Ml Soln, 10 MG PO Q6 PRN for GASTROINTESTINAL UPSET, ML 09/20/18 Metoprolol Tartrate* (Lopressor*) 25 Mg Tablet, 25 MG PO DAILY, #60 TAB HOLD FOR SBP <110 OR HR <60 09/20/18 Morphine Sulfate* (Morphine* Liq) 10 Mg/5 Ml Solution, 2 MG PO Q6 PRN for SEVERE PAIN LEVEL 7-10, ML 09/20/18 Insulin Aspart* (Novolog Insulin Pen*) 100 Unit/Ml Soln, 0 SC .SLIDING SCALE AC, EA [phone]=809 = 0 UNITS 151-200 = 2 UNITS 201-250 = 4 UNITS 251-300 = 6 UNITS 301-350 = 8 UNITS 351-400 =10 UNITS > 400 12 UNITS AND CALL MD GIVE BEFORE MEALS AT AT BEDTIME 09/20/18 Polyethylene Glycol* (Miralax*) 17 Gm Powd.pack, 17 GM PO QPM PRN for CONSTIPATION, #30 PACKET 09/20/18 Potassium Chloride* (K-Dur*) 20 Meq Tab.prt.sr, 20 MEQ PO DAILY, TAB.SA 09/20/18 Hydralazine Hcl* (Hydralazine Hcl*) 25 Mg Tab, 25 MG PO Q6H PRN for ELEVATED BLOOD PRESSURE, #60 TAB GIVE IF SBP>160 09/20/18 Glipizide* (Glipizide*) 5 Mg Tablet, 5 MG PO BID, TAB 09/20/18 Folic Acid* (Folic Acid*) 1 Mg Tablet, 1 MG PO BID, TAB 09/20/18 Ferrous Sulfate* (Ferrous Sulfate*) 325 Mg Tabec, 325 MG PO BID, TAB 09/20/18 Epoetin jorge* (Epogen*) 4,000 Unit/1 Ml Vial, 4000 UNIT SC EVERY SUNDAY, VIAL 09/20/18 Enalapril Maleate* (Vasotec*) 20 Mg Tablet, 25 MG PO Q6 PRN for ELEVATED BLOOD PRESSURE, TAB GIVE IF SBP IS >140 09/20/18 Bisacodyl (Dulcolax) 10 Mg Supp.rect, 10 MG RC EVERY 48 HOURS PRN for CONSTIPATION, SUPP.RECT 09/20/18 Docusate Sodium* (Colace*) 100 Mg Capsule, 100 MG PO DAILY, #30 CAP 09/20/18 Clonidine Hcl* (Clonidine Hcl*) 0.1 Mg Tab, 0.1 MG PO Q6 PRN for ELEVATED BLOOD PRESSURE, TAB GIVE ONLY IF SBP >180 09/20/18 Sucralfate* (Carafate*) 1 Gm Tab, 1 GM PO AC MEALS AND BEDTIME, TAB FOUR TIMES DAILY 09/20/18 Bethanechol Chloride* (Urecholine*) 25 Mg Tab, 25 MG PO QID, TAB 09/20/18 Zolpidem Tartrate* (Ambien*) 5 Mg Tablet, 5 MG PO QHS PRN for INSOMNIA, #30 TAB END 09-21-18 09/20/18 Allergies Allergies: Coded Allergies: ampicillin (Verified Allergy, Unknown, 09/20/18) sulfamethoxazole (Verified Allergy, Unknown, 09/20/18) trimethoprim (Verified Allergy, Unknown, 09/20/18) PMhx/Soc History of Surgery: Yes (right foot amputation, amputation of toes on left footp, permacath plcmt) Anesthesia Reaction: No Hx Neurological Disorder: No Hx Respiratory Disorders: No Hx Cardiac Disorders: Yes (HTN ) Hx Psychiatric Problems: No Hx Miscellaneous Medical Probl: No Hx Alcohol Use: No Hx Substance Use: Yes (hx of marijuana use per medical record ) Hx Tobacco Use: No Smoking Status: Unknown if ever smoked Physical Exam Vitals Vital Signs Date Temp Pulse Resp B/P (MAP) Pulse Ox O2 O2 Flow FiO2 Time Delivery Rate 01/04/19 68 16 172/86 99 Room Air 22:00 (114) 01/04/19 66 16 158/84 99 Room Air 20:00 (108) 01/04/19 97.8 76 17 146/92 99 Room Air 18:17 (110) 01/04/19 97.8 66 17 146/92 99 18:03 (110) Physical Exam Const: No acute distress Head: Atraumatic Eyes: Normal Conjunctiva ENT: Normal External Ears, Nose and Mouth. Neck: Full range of motion. No meningismus. Resp: Clear to auscultation bilaterally Cardio: Regular rate and rhythm, no murmurs Abd: Soft, non tender, non distended. Normal bowel sounds Skin: No petechiae or rashes Back: No midline or flank tenderness Ext: Left upper extremity AV shunt. Pressure dressing is in place. Removed and there is high-pressure pulsatile arterial bleeding. Neur: Awake and alert Psych: Normal Mood and Affect Results 24 hrs Current Medications Medications Dose Sig/Sonja Start Time Status Last (Trade) Ordered Route PRN Stop Time Admin Dose Reason Admin 55.25 ml @ ONCE ONCE 01/04/19 DC 01/04/19 Desmopressin 110.5 mls/ IVPB 19:00 01/04/19 19:35 Acetate 21 hr 19:29 mcg/ Sodium Chloride Tranexamic 100 ml @ NOW ONCE 01/04/19 DC Acid 200 mls/hr IV 19:00 01/04/19 19:29 Tranexamic 1,000 mg ONCE TOP 01/04/19 DC 01/04/19 Acid 20:00 01/04/19 20:04 (Tranexamic 20:01 Acid) Lidocaine 20 ml ONCE ONCE 01/04/19 DC (Xylocaine SC 21:30 01/04/19 1% (Mdv) 20 21:31 ml) Procedures/MDM DOCUMENTS REVIEWED: ED nurse, prior records Observation Note: Time: 4 hours Family Hx: No Hypertension Evaluation: Multiple exams showed improving symptoms and no evidence of ongoing bleeding from the AV fistula. MEDICAL DECISION MAKIN-year-old male with history of hypertension, diabetes and end-stage renal disease on dialysis presents to the ED with bleeding from AV shunt after dialysis today. Pressure dressing placed by paramedics removed and there was pulsatile arterial bleeding. DDAVP administered intravenously. Surgicel and TXA soaked gauze pressure dressing was applied. At 21:45 dressing was removed and there is no further bleeding. Patient was observed for an additional 30 minutes. Stable for discharge with precautionary instructions and outpatient follow-up as counseled. Counseled patient regarding diagnostic workup, diagnosis and need for followup. Understands to return to ED if symptoms recur, worsen or any other concerns. Departure Diagnosis: Primary Impression: Hemorrhage of arteriovenous fistula Encounter type: initial encounter Qualified Codes: T82.838A - Hemorrhage due to vascular prosthetic devices, implants and grafts, initial encounter Additional Impression: End stage renal disease on dialysis Condition: Stable (Improved) IRIS JOY MD Jan 04, 2019 18:18
[2019-01-04] MEDS: TRANEXAMIC ACID 1GM/100ML(PMX) 100 ML IV ONE ×2 (19:00→19:53)
[2019-01-04] MEDS ORDERED: DESMOPRESSIN 21 MCG in SOD CHLORIDE 0.9% 50 ML IVPB ONE (19:00)
[2019-01-04] MEDS ORDERED: TRANEXAMIC ACID 1,000 MG/10 ML VIAL TOP SCH (20:00)
[2019-01-04] MEDS ORDERED: LIDOCAINE 1% (MDV) 20 ML INJ SC ONE (21:30)
[2019-01-04 22:00] VITALS: BP 172/86; PULSE 68; RESP 16
[2019-01-05] MEDS ORDERED: AMLODIPINE 5 MG TAB PO ONE (01:00)
== END 2019-01-05 00:40 | disposition home or self-care (01) ==
LOC: E/R 17:59
DX: T82.838A Hemorrhage due to vascular prosthetic devices, implants and grafts, initial encounter (principal); I12.0 Hypertensive chronic kidney disease with stage 5 chronic kidney disease or end stage renal disease; N18.6 End stage renal disease; E11.22 Type 2 diabetes mellitus with diabetic chronic kidney disease; Y71.2 Prosthetic and other implants, materials and accessory cardiovascular devices associated with adverse incidents; Z79.4 Long term (current) use of insulin; Z99.2 Dependence on renal dialysis
CPT/HCPCS: 96374; 99284; J2597

== ENCOUNTER 2019-02-04 06:22 | Inpatient (IN) | payer MEDICARE, OTHER ==
[2019-02-04] VITALS (55 sets, daily range): BP systolic 80–129; BP diastolic 46–80; PULSE 73–87; RESP 14–22; Ht 172.7 cm; Wt 71.0 kg
[~2019-02-04] VITALS: Ht 172.7 cm; Wt 71.0 kg
[~2019-02-04 06:22] MED LIST changes: -ACET-2047 PO; +ACET-2343 PEGTUBE; +ACET-2343 PO; +ASPI-903 PEGTUBE; +ATOR-2 PEGTUBE; +CHLO25TA18 PEGTUBE; +CIPR400P13 IV; +CLON-379 PEGTUBE; +CYAN100080 PEGTUBE; +DOCU-144 PEGTUBE; +FOLI-49 PEGTUBE; +GENT100P4 IV; +GENTAMICIN XX; +GLIP5TAB13 PEGTUBE; +Insulin Glargine SC; +LEVE500S8 PEGTUBE; +LISI-471 PEGTUBE; +LOSA25TA2 PO; +MAG30ORA PEGTUBE; +METO25TA4 PEGTUBE; +NIFE10CA GTB; +ONDA4TAB13 PEGTUBE; +PANT40TA3 PEGTUBE; +RIFA300C4 PO; +SEVE0.8P PEGTUBE; +SUCR1TAB56 PEGTUBE; +THIA100T56 PEGTUBE; +TUBE5VIA3 ID; +UDFER PEGTUBE; +VLP250480 PEGTUBE; +Vancomycin Iv Per Pharmacy XX
[2019-02-04] MEDS ORDERED: ACETAMINOPHEN 650MG/20.3ML CUP NGT STA (06:25)
[2019-02-04] MEDS ORDERED: CEFEPIME 2GM/50 ML (PMX) 50 ML IVPB STA (06:25)
[2019-02-04] MEDS ORDERED: SODIUM CHLORIDE 0.9% 1L BAG IV* STA (06:25)
[2019-02-04] MEDS ORDERED: VANCOMYCIN 1 GM (PMX) 250 ML IVPB ONE (06:30)
[2019-02-04] MEDS ORDERED: SOD CHLORIDE 0.9% 0 ML IV ONE (06:45)
[2019-02-04] MEDS ORDERED: MIDAZOLAM (DRIP) 50 mg/50 mL 50 ML IV STA (06:46)
[2019-02-04] MEDS ORDERED: NORepinephrine 8MG/250 ML (PMX 250 ML IV STA (06:52)
[2019-02-04] MEDS ORDERED: NORepinephrine 8MG/250 ML (PMX 250 ML ONE (06:53)
[2019-02-04] MEDS ORDERED: ETOMIDATE 20 MG INJ ONE (07:00)
[2019-02-04] MEDS ORDERED: FENTAnyl (DRIP) 1000 mcg/100mL 100 ML IV ONE (07:00)
[2019-02-04] MEDS ORDERED: ROCURONIUM 50 MG INJ IV ONE (07:00)
[2019-02-04] MEDS ORDERED: ETOMIDATE 20 MG INJ IV ONE (07:00)
[2019-02-04] MEDS ORDERED: PANTOPRAZOLE IV 80 MG in SOD CHLORIDE 0.9% 100 ML IV STA (08:02)
[2019-02-04] MEDS ORDERED: PANTOPRAZOLE IV 80 MG in SOD CHLORIDE 0.9% 100 ML IVPB STA (08:02)
[2019-02-04] MEDS ORDERED: DESMOPRESSIN 20 MCG in SOD CHLORIDE 0.9% 50 ML IVPB ONE (08:30)
[2019-02-04] MEDS ORDERED: VANCOMYCIN IV PER PHARMACY XX SCH (10:30)
[2019-02-04] MEDS ORDERED: ONDANSETRON 4 MG INJ IV PRN ×2 (10:30)
[2019-02-04] MEDS: SOD CHLORIDE 0.9% 1,000 ML IV SCH (12:13)
[2019-02-04] MEDS ORDERED: VANCOMYCIN 500 MG (PMX) 100 ML IVPB SCH (12:30)
[2019-02-04] MEDS: INSULIN ASPART [NOVOLOG] 3 ML PEN SC SCH ×3 (13:00→20:50)
[2019-02-04] MEDS: SEVELAMER CARBONATE 0.8 GM PKT GTB SCH ×2 (13:35→21:04)
[2019-02-04] MEDS ORDERED: PIPER-TAZO 2.25 GM (PMX) 50 ML IVPB SCH (14:00)
[2019-02-04] MEDS ORDERED: GLUCOSE GEL 15 GRAM TUBE BUCCAL PRN (14:00)
[2019-02-04] MEDS ORDERED: GLUCAGON 1 MG INJ IM PRN (14:00)
[2019-02-04] MEDS ORDERED: DEXTROSE 50% 50 ML SYRINGE IV PRN ×2 (14:00)
[2019-02-04] MEDS ORDERED: GLUCOSE GEL 15 GRAM TUBE PO PRN ×2 (14:00)
[2019-02-04] MEDS: PANTOPRAZOLE 40 MG INJ IV SCH (18:00)
[2019-02-04] MEDS: FERROUS SULFATE 60 MG/ML 5ML CUP PEG SCH (21:05)
[2019-02-04] MEDS: THIAMINE 100 MG TAB PEG SCH (21:05)
[2019-02-04] MEDS: CYANOCOBALAMIN 500 MCG TAB PEG SCH (21:05)
[2019-02-04] MEDS: DOCUSATE SODIUM 100 MG CAP PO SCH (21:05)
[2019-02-04] MEDS: ATORVASTATIN 80 MG TAB PEG SCH (21:05)
[2019-02-04] MEDS: FOLIC ACID 1 MG TAB PEG SCH (21:05)
[2019-02-04] MEDS ORDERED: MIDAZOLAM (DRIP) 50 mg/50 mL 50 ML IV SCH (22:30)
[2019-02-05] VITALS (62 sets, daily range): BP systolic 91–158; BP diastolic 53–94; PULSE 72–90; RESP 11–28
[2019-02-05] MEDS: INSULIN ASPART [NOVOLOG] 3 ML PEN SC SCH ×6 (01:00→20:48)
[2019-02-05] MEDS: SOD CHLORIDE 0.9% 1,000 ML IV SCH (01:35)
[2019-02-05] MEDS: ACCU-CHEK XX SCH (02:00)
[2019-02-05] MEDS: PANTOPRAZOLE 40 MG INJ IV SCH ×2 (05:03→17:12)
[2019-02-05] MEDS: CEFEPIME 1GM/50 ML (PMX) 50 ML IVPB SCH (06:09)
[2019-02-05] MEDS ORDERED: SOD CHLORIDE 0.9% 250 ML IV* ONE (08:07)
[2019-02-05] MEDS: FERROUS SULFATE 60 MG/ML 5ML CUP PEG SCH ×2 (08:31→20:30)
[2019-02-05] MEDS: THIAMINE 100 MG TAB PEG SCH ×2 (08:32→20:30)
[2019-02-05] MEDS: DOCUSATE SODIUM 100 MG CAP PO SCH ×2 (08:32→19:54)
[2019-02-05] MEDS: SEVELAMER CARBONATE 0.8 GM PKT GTB SCH ×3 (08:32→20:30)
[2019-02-05] MEDS: CYANOCOBALAMIN 500 MCG TAB PEG SCH ×2 (08:32→20:30)
[2019-02-05] MEDS: FOLIC ACID 1 MG TAB PEG SCH ×2 (08:32→20:30)
[2019-02-05] MEDS: FLUCONAZOLE 100 MG/50 ML 50 ML IVPB SCH (14:49)
[2019-02-05] MEDS: ATORVASTATIN 80 MG TAB PEG SCH (20:30)
[2019-02-06] VITALS (37 sets, daily range): BP systolic 134–196; BP diastolic 66–99; PULSE 78–97; RESP 12–34
[2019-02-06] MEDS: INSULIN ASPART [NOVOLOG] 3 ML PEN SC SCH ×6 (01:12→21:24)
[2019-02-06] MEDS: ACCU-CHEK XX SCH (02:00)
[2019-02-06] MEDS: PANTOPRAZOLE 40 MG INJ IV SCH (05:33)
[2019-02-06] MEDS: CEFEPIME 1GM/50 ML (PMX) 50 ML IVPB SCH (07:11)
[2019-02-06] MEDS: SEVELAMER CARBONATE 0.8 GM PKT GTB SCH ×3 (08:51→21:16)
[2019-02-06] MEDS: FOLIC ACID 1 MG TAB PEG SCH ×2 (08:52→21:16)
[2019-02-06] MEDS: THIAMINE 100 MG TAB PEG SCH ×2 (08:52→21:16)
[2019-02-06] MEDS: FERROUS SULFATE 60 MG/ML 5ML CUP PEG SCH ×2 (08:52→21:16)
[2019-02-06] MEDS: CYANOCOBALAMIN 500 MCG TAB PEG SCH ×2 (08:52→21:16)
[2019-02-06] MEDS ORDERED: VANCOMYCIN 1 GM 250 ML IVPB SCH (12:00)
[2019-02-06] MEDS ORDERED: SODIUM CHLORIDE 0.9% 1L BAG IV PRN (12:30)
[2019-02-06] MEDS ORDERED: ALBUMIN HUMAN 25% 100 ML IV PRN (12:30)
[2019-02-06] MEDS ORDERED: GENTAMICIN IV PER PHARMACY XX SCH (14:30)
[2019-02-06] MEDS: PANTOPRAZOLE IV 80 MG in SOD CHLORIDE 0.9% 100 ML IV SCH (15:29)
[2019-02-06] MEDS: FLUCONAZOLE 100 MG/50 ML 50 ML IVPB SCH (15:30)
[2019-02-06] MEDS ORDERED: GENTAMICIN 140 MG in DEXTROSE 5% 100 ML IVPB SCH (15:30)
[2019-02-06] MEDS: SUCRALFATE (100 MG/ML) 10ML CUP GTB SCH ×2 (17:56→21:16)
[2019-02-06] MEDS: hydrALAzine 20 MG INJ IV PRN (18:22)
[2019-02-06] MEDS: DOCUSATE SODIUM 10 MG/ML (10ML CUP) GTB SCH (21:00)
[2019-02-06] MEDS: ATORVASTATIN 80 MG TAB PEG SCH (21:16)
[2019-02-07] VITALS (52 sets, daily range): BP systolic 120–176; BP diastolic 68–94; PULSE 70–88; RESP 14–22
[2019-02-07] MEDS: PANTOPRAZOLE IV 80 MG in SOD CHLORIDE 0.9% 100 ML IV SCH ×3 (01:00→20:54)
[2019-02-07] MEDS: INSULIN ASPART [NOVOLOG] 3 ML PEN SC SCH ×6 (01:03→20:54)
[2019-02-07] MEDS: ACCU-CHEK XX SCH (01:06)
[2019-02-07] MEDS: morphine 2 MG INJ IV PRN (01:07)
[2019-02-07] MEDS: FERROUS SULFATE 60 MG/ML 5ML CUP PEG SCH ×2 (09:00→22:04)
[2019-02-07] MEDS ORDERED: ASCORBIC ACID 500 MG TAB GTB SCH (09:00)
[2019-02-07] MEDS: CYANOCOBALAMIN 500 MCG TAB PEG SCH ×2 (09:00→22:04)
[2019-02-07] MEDS: ASCORBIC ACID 500 MG TAB GTB SCH (09:00)
[2019-02-07] MEDS: DOCUSATE SODIUM 10 MG/ML (10ML CUP) GTB SCH ×2 (09:00→22:04)
[2019-02-07] MEDS: SUCRALFATE (100 MG/ML) 10ML CUP GTB SCH ×4 (09:00→22:04)
[2019-02-07] MEDS: THIAMINE 100 MG TAB PEG SCH ×2 (09:00→22:03)
[2019-02-07] MEDS: SEVELAMER CARBONATE 0.8 GM PKT GTB SCH ×3 (09:00→22:04)
[2019-02-07] MEDS: FOLIC ACID 1 MG TAB PEG SCH ×2 (09:00→22:04)
[2019-02-07] MEDS ORDERED: PROPOFOL 20 ML ONE ×2 (14:10→15:09)
[2019-02-07] MEDS ORDERED: ETOMIDATE 20 MG INJ ONE (14:11)
[2019-02-07] MEDS ORDERED: LIDOCAINE 2% (SDV) 5 ML INJ ONE (14:11)
[2019-02-07] MEDS ORDERED: HYDROmorphONE 0.5 MG/0.5 ML SYG IV PRN (15:30)
[2019-02-07] MEDS ORDERED: FENTAnyl 50 MCG/ML VIAL IV PRN (15:30)
[2019-02-07] MEDS: FLUCONAZOLE 100 MG/50 ML 50 ML IVPB SCH (15:35)
[2019-02-07] MEDS ORDERED: GENTAMICIN 80 MG/NS (PMX) 50 ML IVPB SCH (16:00)
[2019-02-07] MEDS: ATORVASTATIN 80 MG TAB PEG SCH (22:03)
[2019-02-08] VITALS (43 sets, daily range): BP systolic 127–170; BP diastolic 70–104; PULSE 70–94; RESP 14–28
[2019-02-08] MEDS: INSULIN ASPART [NOVOLOG] 3 ML PEN SC SCH ×6 (00:47→20:03)
[2019-02-08] MEDS: ACCU-CHEK XX SCH (02:00)
[2019-02-08] MEDS: PANTOPRAZOLE IV 80 MG in SOD CHLORIDE 0.9% 100 ML IV SCH ×3 (06:06→19:48)
[2019-02-08] MEDS: SUCRALFATE (100 MG/ML) 10ML CUP GTB SCH ×4 (09:06→21:00)
[2019-02-08] MEDS: DOCUSATE SODIUM 10 MG/ML (10ML CUP) GTB SCH ×2 (09:06→21:00)
[2019-02-08] MEDS: FERROUS SULFATE 60 MG/ML 5ML CUP PEG SCH ×2 (09:06→21:00)
[2019-02-08] MEDS: SEVELAMER CARBONATE 0.8 GM PKT GTB SCH ×3 (09:06→21:00)
[2019-02-08] MEDS: ASCORBIC ACID 500 MG TAB GTB SCH (09:06)
[2019-02-08] MEDS: FOLIC ACID 1 MG TAB PEG SCH ×2 (09:06→21:01)
[2019-02-08] MEDS: CYANOCOBALAMIN 500 MCG TAB PEG SCH ×2 (09:06→21:01)
[2019-02-08] MEDS: hydrALAzine 20 MG INJ IV PRN (09:39)
[2019-02-08] MEDS: FLUCONAZOLE 100 MG/50 ML 50 ML IVPB SCH (14:34)
[2019-02-08] MEDS: morphine 2 MG INJ IV PRN (16:24)
[2019-02-08] MEDS: ATORVASTATIN 80 MG TAB PEG SCH (21:00)
[2019-02-08] MEDS: THIAMINE 100 MG TAB PEG SCH (21:01)
[2019-02-09] VITALS (28 sets, daily range): BP systolic 131–177; BP diastolic 69–98; PULSE 71–94; RESP 12–28
[2019-02-09] MEDS: INSULIN ASPART [NOVOLOG] 3 ML PEN SC SCH ×6 (01:00→20:57)
[2019-02-09] MEDS: ACCU-CHEK XX SCH (01:21)
[2019-02-09] MEDS: PANTOPRAZOLE IV 80 MG in SOD CHLORIDE 0.9% 100 ML IV SCH ×2 (04:48→16:05)
[2019-02-09] MEDS: hydrALAzine 20 MG INJ IV PRN (08:03)
[2019-02-09] MEDS: DOCUSATE SODIUM 10 MG/ML (10ML CUP) GTB SCH ×2 (08:28→20:42)
[2019-02-09] MEDS: ASCORBIC ACID 500 MG TAB GTB SCH (08:29)
[2019-02-09] MEDS: FERROUS SULFATE 60 MG/ML 5ML CUP PEG SCH ×2 (08:29→20:42)
[2019-02-09] MEDS: SEVELAMER CARBONATE 0.8 GM PKT GTB SCH ×3 (08:29→20:42)
[2019-02-09] MEDS: CYANOCOBALAMIN 500 MCG TAB PEG SCH ×2 (08:29→20:43)
[2019-02-09] MEDS: FOLIC ACID 1 MG TAB PEG SCH ×2 (08:29→20:43)
[2019-02-09] MEDS: SUCRALFATE (100 MG/ML) 10ML CUP GTB SCH ×4 (08:29→20:42)
[2019-02-09] MEDS: LOSARTAN 25 MG TAB PO SCH (08:30)
[2019-02-09] MEDS: ASPIRIN 81 MG TAB GTB SCH (12:47)
[2019-02-09] MEDS: FLUCONAZOLE 100 MG/50 ML 50 ML IVPB SCH (14:13)
[2019-02-09] MEDS: ACETAMINOPHEN 650MG/20.3ML CUP PO PRN (20:42)
[2019-02-09] MEDS: THIAMINE 100 MG TAB PEG SCH (20:43)
[2019-02-09] MEDS: ATORVASTATIN 80 MG TAB PEG SCH (20:43)
[2019-02-10] VITALS (11 sets, daily range): BP systolic 127–176; BP diastolic 67–92; PULSE 72–90; RESP 16–20
[2019-02-10] MEDS: ACCU-CHEK XX SCH (02:00)
[2019-02-10] MEDS: PANTOPRAZOLE IV 80 MG in SOD CHLORIDE 0.9% 100 ML IV SCH ×3 (02:42→17:39)
[2019-02-10] MEDS: INSULIN ASPART [NOVOLOG] 3 ML PEN SC SCH ×4 (02:43→17:17)
[2019-02-10] MEDS: hydrALAzine 20 MG INJ IV PRN ×2 (05:48→21:26)
[2019-02-10] MEDS: FOLIC ACID 1 MG TAB PEG SCH ×2 (08:51→21:24)
[2019-02-10] MEDS: SUCRALFATE (100 MG/ML) 10ML CUP GTB SCH ×4 (08:51→21:24)
[2019-02-10] MEDS: ASCORBIC ACID 500 MG TAB GTB SCH (08:51)
[2019-02-10] MEDS: CYANOCOBALAMIN 500 MCG TAB PEG SCH ×2 (08:51→21:24)
[2019-02-10] MEDS: ASPIRIN 81 MG TAB GTB SCH (08:51)
[2019-02-10] MEDS: DOCUSATE SODIUM 10 MG/ML (10ML CUP) GTB SCH ×2 (08:51→21:23)
[2019-02-10] MEDS: FERROUS SULFATE 60 MG/ML 5ML CUP PEG SCH ×2 (08:51→21:24)
[2019-02-10] MEDS: SEVELAMER CARBONATE 0.8 GM PKT GTB SCH ×3 (08:52→21:24)
[2019-02-10] MEDS: LOSARTAN 25 MG TAB PO SCH ×2 (12:47→22:22)
[2019-02-10] MEDS: FLUCONAZOLE 100 MG/50 ML 50 ML IVPB SCH (14:24)
[2019-02-10] MEDS ORDERED: DEXTROSE 5%-0.45% NACL 1,000 ML IV SCH (17:00)
[2019-02-10] MEDS: VALPROIC ACID LIQUID CUP 250 MG/5 ML CUP GTB SCH (21:23)
[2019-02-10] MEDS: ATORVASTATIN 80 MG TAB PEG SCH (21:24)
[2019-02-10] MEDS: THIAMINE 100 MG TAB PEG SCH (21:24)
[2019-02-10] MEDS: DEXTROSE 5%-0.45% NACL 1,000 ML IV SCH (22:22)
[2019-02-11] VITALS (21 sets, daily range): BP systolic 130–178; BP diastolic 75–106; PULSE 77–112; RESP 18–20
[2019-02-11] MEDS: INSULIN ASPART [NOVOLOG] 3 ML PEN SC SCH ×5 (00:30→23:46)
[2019-02-11] MEDS: ACCU-CHEK XX SCH (02:00)
[2019-02-11] MEDS: PANTOPRAZOLE IV 80 MG in SOD CHLORIDE 0.9% 100 ML IV SCH ×3 (05:27→15:47)
[2019-02-11] MEDS: DOCUSATE SODIUM 10 MG/ML (10ML CUP) GTB SCH ×2 (09:25→22:50)
[2019-02-11] MEDS: CYANOCOBALAMIN 500 MCG TAB PEG SCH ×2 (09:25→22:49)
[2019-02-11] MEDS: VALPROIC ACID LIQUID CUP 250 MG/5 ML CUP GTB SCH ×3 (09:25→22:56)
[2019-02-11] MEDS: SEVELAMER CARBONATE 0.8 GM PKT GTB SCH ×3 (09:25→22:50)
[2019-02-11] MEDS: THIAMINE 100 MG TAB GTB SCH (09:26)
[2019-02-11] MEDS: SUCRALFATE (100 MG/ML) 10ML CUP GTB SCH ×4 (09:26→22:50)
[2019-02-11] MEDS: FOLIC ACID 1 MG TAB PEG SCH ×2 (09:26→22:49)
[2019-02-11] MEDS: ASCORBIC ACID 500 MG TAB GTB SCH (09:26)
[2019-02-11] MEDS: FERROUS SULFATE 60 MG/ML 5ML CUP PEG SCH ×2 (09:26→22:49)
[2019-02-11] MEDS: LOSARTAN 25 MG TAB PO SCH ×2 (09:27→22:51)
[2019-02-11] MEDS: DEXTROSE 5%-0.45% NACL 1,000 ML IV SCH ×2 (17:09→23:14)
[2019-02-11] MEDS ORDERED: ALBUTEROL/IPRATROPIUM (NEB) 3 ML AMP HHN PRN (17:30)
[2019-02-11] MEDS ORDERED: ALBUTEROL/IPRATROPIUM (NEB) 3 ML AMP HHN SCH (17:30)
[2019-02-11] MEDS: hydrALAzine 20 MG INJ IV PRN ×2 (20:28→23:56)
[2019-02-11] MEDS: ATORVASTATIN 80 MG TAB PEG SCH (22:49)
[2019-02-11] MEDS: THIAMINE 100 MG TAB PEG SCH (22:54)
[2019-02-12] VITALS (22 sets, daily range): BP systolic 115–179; BP diastolic 68–95; PULSE 98–116; RESP 16–20
[2019-02-12] MEDS ORDERED: IPRATROPIUM (NEB) 0.5 MG/2.5 ML AMP HHN PRN (00:30)
[2019-02-12] MEDS: PANTOPRAZOLE IV 80 MG in SOD CHLORIDE 0.9% 100 ML IV SCH ×3 (00:30→10:56)
[2019-02-12] MEDS ORDERED: LEVALBUTEROL (NEB) 0.63 MG/3 ML AMP HHN PRN (00:30)
[2019-02-12] MEDS: LEVALBUTEROL (NEB) 0.63 MG/3 ML AMP HHN SCH ×4 (01:34→19:56)
[2019-02-12] MEDS: IPRATROPIUM (NEB) 0.5 MG/2.5 ML AMP HHN SCH ×4 (01:34→19:55)
[2019-02-12] MEDS: ACCU-CHEK XX SCH (02:00)
[2019-02-12] MEDS: GENTAMICIN 80 MG/NS (PMX) 50 ML IVPB SCH ×2 (02:22→16:42)
[2019-02-12] MEDS: INSULIN ASPART [NOVOLOG] 3 ML PEN SC SCH ×3 (05:50→17:46)
[2019-02-12] MEDS: hydrALAzine 20 MG INJ IV PRN ×3 (05:51→20:16)
[2019-02-12] MEDS: LOSARTAN 25 MG TAB PO SCH ×2 (09:00→21:00)
[2019-02-12] MEDS: ACETAMINOPHEN 650MG/20.3ML CUP PO PRN (09:02)
[2019-02-12] MEDS: CYANOCOBALAMIN 500 MCG TAB PEG SCH ×2 (09:03→21:00)
[2019-02-12] MEDS: DOCUSATE SODIUM 10 MG/ML (10ML CUP) GTB SCH ×2 (09:03→21:00)
[2019-02-12] MEDS: ASCORBIC ACID 500 MG TAB GTB SCH (09:03)
[2019-02-12] MEDS: VALPROIC ACID LIQUID CUP 250 MG/5 ML CUP GTB SCH ×3 (09:03→22:59)
[2019-02-12] MEDS: FOLIC ACID 1 MG TAB PEG SCH ×2 (09:03→21:00)
[2019-02-12] MEDS: SEVELAMER CARBONATE 0.8 GM PKT GTB SCH ×3 (09:03→21:00)
[2019-02-12] MEDS: THIAMINE 100 MG TAB GTB SCH (09:03)
[2019-02-12] MEDS: SUCRALFATE (100 MG/ML) 10ML CUP GTB SCH ×4 (09:03→21:00)
[2019-02-12] MEDS: FERROUS SULFATE 60 MG/ML 5ML CUP PEG SCH ×2 (09:03→21:00)
[2019-02-12] MEDS: morphine 2 MG INJ IV PRN (12:33)
[2019-02-12] MEDS: DEXTROSE 5%-0.45% NACL 1,000 ML IV SCH (13:44)
[2019-02-12] MEDS ORDERED: LABETALOL HCL 20MG INJ IV PRN (14:00)
[2019-02-12] MEDS: PANTOPRAZOLE 40 MG INJ IV SCH (17:43)
[2019-02-12] MEDS: ATORVASTATIN 80 MG TAB PEG SCH (21:00)
[2019-02-12] MEDS: THIAMINE 100 MG TAB PEG SCH (21:00)
[2019-02-13] VITALS (9 sets, daily range): BP systolic 144–163; BP diastolic 69–88; PULSE 81–104; RESP 17–22
[2019-02-13] MEDS: IPRATROPIUM (NEB) 0.5 MG/2.5 ML AMP HHN SCH ×4 (01:53→20:11)
[2019-02-13] MEDS: LEVALBUTEROL (NEB) 0.63 MG/3 ML AMP HHN SCH ×4 (01:53→20:11)
[2019-02-13] MEDS: ACCU-CHEK XX SCH (02:00)
[2019-02-13] MEDS: INSULIN ASPART [NOVOLOG] 3 ML PEN SC SCH ×5 (06:00→21:00)
[2019-02-13] MEDS: PANTOPRAZOLE 40 MG INJ IV SCH ×2 (06:07→18:16)
[2019-02-13] MEDS ORDERED: ACETAMINOPHEN 650 MG SUPP PR PRN (07:00)
[2019-02-13] MEDS ORDERED: VALPROATE INJ 1,000 MG in SOD CHLORIDE 0.9% 100 ML IVPB SCH (07:30)
[2019-02-13] MEDS: VALPROIC ACID LIQUID CUP 250 MG/5 ML CUP GTB SCH ×3 (08:06→21:00)
[2019-02-13] MEDS: SUCRALFATE (100 MG/ML) 10ML CUP GTB SCH ×4 (08:06→21:00)
[2019-02-13] MEDS: DOCUSATE SODIUM 10 MG/ML (10ML CUP) GTB SCH ×2 (08:06→21:00)
[2019-02-13] MEDS: LEVETIRACETAM (100 MG/ML) 5ML CUP GTB SCH ×2 (08:07→21:00)
[2019-02-13] MEDS: THIAMINE 100 MG TAB GTB SCH (08:07)
[2019-02-13] MEDS: ASCORBIC ACID 500 MG TAB GTB SCH (08:07)
[2019-02-13] MEDS: LOSARTAN 25 MG TAB PO SCH ×2 (08:07→21:00)
[2019-02-13] MEDS: SEVELAMER CARBONATE 0.8 GM PKT GTB SCH ×3 (08:07→21:00)
[2019-02-13] MEDS: FOLIC ACID 1 MG TAB PEG SCH ×2 (08:08→21:00)
[2019-02-13] MEDS: FERROUS SULFATE 60 MG/ML 5ML CUP PEG SCH ×2 (08:08→21:00)
[2019-02-13] MEDS: CYANOCOBALAMIN 500 MCG TAB PEG SCH ×2 (08:08→21:00)
[2019-02-13] MEDS: morphine 2 MG INJ IV PRN ×2 (08:22→19:02)
[2019-02-13] MEDS: hydrALAzine 20 MG INJ IV PRN (08:22)
[2019-02-13] MEDS ORDERED: IOHEXOL 100 ML ONE ×2 (09:06)
[2019-02-13] MEDS ORDERED: SOD CHLORIDE 0.9% 100 ML ONE ×2 (09:06→15:59)
[2019-02-13] MEDS: DEXTROSE 5%-0.45% NACL 1,000 ML IV SCH (10:56)
[2019-02-13] MEDS ORDERED: IOHEXOL 14.3 MG(I)/ML (ADULT) BTL PO ONE (12:30)
[2019-02-13] MEDS ORDERED: CHLORPROMAZINE 25 MG TAB PO PRN (13:30)
[2019-02-13] MEDS ORDERED: METOCLOPRAMIDE 10 MG INJ IV PRN (13:30)
[2019-02-13] MEDS ORDERED: IODIXANOL LOCM 100 ML BTL ONE (15:59)
[2019-02-13] MEDS: ATORVASTATIN 80 MG TAB PEG SCH (21:00)
[2019-02-13] MEDS: THIAMINE 100 MG TAB PEG SCH (21:00)
[2019-02-14] VITALS (18 sets, daily range): BP systolic 120–192; BP diastolic 67–101; PULSE 82–107; RESP 20–22
[2019-02-14] MEDS: INSULIN ASPART [NOVOLOG] 3 ML PEN SC SCH ×6 (01:00→21:00)
[2019-02-14] MEDS: LEVALBUTEROL (NEB) 0.63 MG/3 ML AMP HHN SCH ×4 (01:40→19:34)
[2019-02-14] MEDS: IPRATROPIUM (NEB) 0.5 MG/2.5 ML AMP HHN SCH ×4 (01:40→19:34)
[2019-02-14] MEDS: ACCU-CHEK XX SCH (02:00)
[2019-02-14] MEDS: PANTOPRAZOLE 40 MG INJ IV SCH ×2 (06:10→18:01)
[2019-02-14] MEDS: SEVELAMER CARBONATE 0.8 GM PKT GTB SCH (09:00)
[2019-02-14] MEDS: LOSARTAN 25 MG TAB PO SCH ×2 (09:00→18:03)
[2019-02-14] MEDS ORDERED: BARIUM SULFATE 135 ML (E-Z HD) PO ONE (09:46)
[2019-02-14] MEDS ORDERED: ASPIRIN 81 MG TAB GTB SCH (10:00)
[2019-02-14] MEDS: LEVETIRACETAM 500 MG (PMX) 100 ML IVPB SCH ×2 (10:38→21:29)
[2019-02-14] MEDS: DEXTROSE 5% IVPB SCH ×2 (10:38→21:29)
[2019-02-14] MEDS: VALPROATE IVPB SCH ×2 (10:38→21:29)
[2019-02-14] MEDS: METOCLOPRAMIDE 10 MG INJ IV SCH ×2 (11:05→18:02)
[2019-02-14] MEDS: SOD CHLORIDE 0.9% 250 ML IV SCH ×2 (12:00→12:46)
[2019-02-14] MEDS: SEVELAMER CARBONATE 0.8 GM PKT PO SCH ×2 (13:00→21:21)
[2019-02-14] MEDS: SUCRALFATE (100 MG/ML) 10ML CUP PO SCH ×3 (13:00→21:20)
[2019-02-14] MEDS: DOCUSATE SODIUM 10 MG/ML (10ML CUP) PO SCH (21:20)
[2019-02-14] MEDS: ATORVASTATIN 80 MG TAB PO SCH (21:21)
[2019-02-14] MEDS: POLYETHYLENE GLYCOL 17 GM PACKET PO SCH (21:21)
[2019-02-14] MEDS: GENTAMICIN 80 MG/NS (PMX) 50 ML IVPB SCH (21:36)
[2019-02-15] VITALS (9 sets, daily range): BP systolic 150–177; BP diastolic 74–87; PULSE 93–102; RESP 20
[2019-02-15] MEDS: INSULIN ASPART [NOVOLOG] 3 ML PEN SC SCH ×6 (00:31→21:33)
[2019-02-15] MEDS: METOCLOPRAMIDE 10 MG INJ IV SCH ×4 (00:31→18:26)
[2019-02-15] MEDS: ACCU-CHEK XX SCH (01:13)
[2019-02-15] MEDS: IPRATROPIUM (NEB) 0.5 MG/2.5 ML AMP HHN SCH ×4 (02:29→20:38)
[2019-02-15] MEDS: LEVALBUTEROL (NEB) 0.63 MG/3 ML AMP HHN SCH ×4 (02:29→20:38)
[2019-02-15] MEDS: PANTOPRAZOLE 40 MG INJ IV SCH ×2 (05:15→18:27)
[2019-02-15] MEDS: VALPROATE IVPB SCH ×3 (05:15→21:30)
[2019-02-15] MEDS: DEXTROSE 5% IVPB SCH ×3 (05:15→21:30)
[2019-02-15] MEDS: SUCRALFATE (100 MG/ML) 10ML CUP PO SCH ×4 (09:17→21:29)
[2019-02-15] MEDS: LEVETIRACETAM 500 MG (PMX) 100 ML IVPB SCH ×2 (09:18→21:24)
[2019-02-15] MEDS: SEVELAMER CARBONATE 0.8 GM PKT PO SCH ×3 (09:18→21:28)
[2019-02-15] MEDS: ASCORBIC ACID 500 MG TAB PO SCH (09:18)
[2019-02-15] MEDS: DOCUSATE SODIUM 10 MG/ML (10ML CUP) PO SCH ×2 (09:19→21:29)
[2019-02-15] MEDS: LOSARTAN 25 MG TAB PO SCH ×2 (09:19→21:29)
[2019-02-15] MEDS: ASPIRIN 81 MG TAB PO SCH (09:19)
[2019-02-15] MEDS: SOD CHLORIDE 0.9% 250 ML IVPB SCH (09:35)
[2019-02-15] MEDS: hydrALAzine 20 MG INJ IV PRN ×2 (12:16→18:22)
[2019-02-15] MEDS: ATORVASTATIN 80 MG TAB PO SCH (21:28)
[2019-02-15] MEDS: POLYETHYLENE GLYCOL 17 GM PACKET PO SCH (21:29)
[2019-02-16] VITALS (8 sets, daily range): BP systolic 155–183; BP diastolic 72–88; PULSE 91–106; RESP 20–21
[2019-02-16] MEDS: METOCLOPRAMIDE 10 MG INJ IV SCH ×5 (00:12→22:15)
[2019-02-16] MEDS: INSULIN ASPART [NOVOLOG] 3 ML PEN SC SCH ×6 (01:00→21:00)
[2019-02-16] MEDS: LEVALBUTEROL (NEB) 0.63 MG/3 ML AMP HHN SCH ×3 (02:11→13:08)
[2019-02-16] MEDS: IPRATROPIUM (NEB) 0.5 MG/2.5 ML AMP HHN SCH ×4 (02:11→20:09)
[2019-02-16] MEDS: ACCU-CHEK XX SCH (02:27)
[2019-02-16] MEDS: hydrALAzine 20 MG INJ IV PRN ×3 (04:26→17:25)
[2019-02-16] MEDS: PANTOPRAZOLE 40 MG INJ IV SCH ×2 (05:42→17:22)
[2019-02-16] MEDS: DEXTROSE 5% IVPB SCH ×3 (05:44→22:04)
[2019-02-16] MEDS: VALPROATE IVPB SCH ×3 (05:44→22:04)
[2019-02-16] MEDS: DOCUSATE SODIUM 10 MG/ML (10ML CUP) PO SCH ×2 (08:19→22:04)
[2019-02-16] MEDS: LEVETIRACETAM 500 MG (PMX) 100 ML IVPB SCH ×2 (08:19→22:05)
[2019-02-16] MEDS: SEVELAMER CARBONATE 0.8 GM PKT PO SCH ×3 (08:19→22:04)
[2019-02-16] MEDS: ASPIRIN 81 MG TAB PO SCH (08:20)
[2019-02-16] MEDS: SUCRALFATE (100 MG/ML) 10ML CUP PO SCH ×4 (08:20→21:00)
[2019-02-16] MEDS: LOSARTAN 25 MG TAB PO SCH ×2 (08:20→22:05)
[2019-02-16] MEDS: ASCORBIC ACID 500 MG TAB PO SCH (08:20)
[2019-02-16] MEDS: SOD CHLORIDE 0.9% 250 ML IVPB SCH (08:21)
[2019-02-16] MEDS: morphine 2 MG INJ IV PRN (10:01)
[2019-02-16] MEDS ORDERED: LEVALBUTEROL (NEB) 0.31 MG/3 ML AMP INH PRN (15:00)
[2019-02-16] MEDS: CIPROFLOXACIN 200 MG/D5W IVPB 100 ML IVPB SCH (19:03)
[2019-02-16] MEDS ORDERED: LEVALBUTEROL (NEB) 1.25 MG/0.5 ML AMP ONE (19:36)
[2019-02-16] MEDS: LEVALBUTEROL (NEB) 0.31 MG/3 ML AMP INH SCH (20:09)
[2019-02-16] MEDS: POLYETHYLENE GLYCOL 17 GM PACKET PO SCH (22:04)
[2019-02-16] MEDS: ATORVASTATIN 80 MG TAB PO SCH (22:04)
[2019-02-17] VITALS (23 sets, daily range): BP systolic 132–180; BP diastolic 54–98; PULSE 84–107; RESP 18–20
[2019-02-17] MEDS: hydrALAzine 20 MG INJ IV PRN ×2 (00:46→15:59)
[2019-02-17] MEDS: INSULIN ASPART [NOVOLOG] 3 ML PEN SC SCH ×6 (00:51→21:00)
[2019-02-17] MEDS: ACCU-CHEK XX SCH (02:00)
[2019-02-17] MEDS: LEVALBUTEROL (NEB) 0.31 MG/3 ML AMP INH SCH ×5 (02:30→20:40)
[2019-02-17] MEDS: IPRATROPIUM (NEB) 0.5 MG/2.5 ML AMP HHN SCH ×4 (02:30→20:39)
[2019-02-17] MEDS: METOCLOPRAMIDE 10 MG INJ IV SCH (05:18)
[2019-02-17] MEDS: PANTOPRAZOLE 40 MG INJ IV SCH ×2 (05:18→17:02)
[2019-02-17] MEDS: VALPROATE IVPB SCH ×3 (05:26→22:00)
[2019-02-17] MEDS: DEXTROSE 5% IVPB SCH ×3 (05:26→22:00)
[2019-02-17] MEDS: ASCORBIC ACID 500 MG TAB PO SCH (08:50)
[2019-02-17] MEDS: DOCUSATE SODIUM 10 MG/ML (10ML CUP) PO SCH ×2 (08:50→23:11)
[2019-02-17] MEDS: SEVELAMER CARBONATE 0.8 GM PKT PO SCH ×3 (08:50→23:12)
[2019-02-17] MEDS: ASPIRIN 81 MG TAB PO SCH (08:50)
[2019-02-17] MEDS: LOSARTAN 25 MG TAB PO SCH ×2 (08:50→23:12)
[2019-02-17] MEDS: LEVETIRACETAM 500 MG (PMX) 100 ML IVPB SCH ×2 (08:57→23:12)
[2019-02-17] MEDS: SUCRALFATE (100 MG/ML) 10ML CUP PO SCH ×4 (09:00→23:11)
[2019-02-17] MEDS: GENTAMICIN 80 MG/NS (PMX) 50 ML IVPB SCH (15:33)
[2019-02-17] MEDS: CIPROFLOXACIN 200 MG/D5W IVPB 100 ML IVPB SCH (17:44)
[2019-02-17] MEDS: POLYETHYLENE GLYCOL 17 GM PACKET PO SCH (23:11)
[2019-02-17] MEDS: ATORVASTATIN 80 MG TAB PO SCH (23:11)
[2019-02-18] VITALS: BP 136/71; PULSE 91; RESP 18
[2019-02-18] MEDS: INSULIN ASPART [NOVOLOG] 3 ML PEN SC SCH ×6 (01:00→21:15)
[2019-02-18] MEDS: ACCU-CHEK XX SCH (01:18)
[2019-02-18] MEDS: IPRATROPIUM (NEB) 0.5 MG/2.5 ML AMP HHN SCH ×4 (01:59→20:30)
[2019-02-18] MEDS: LEVALBUTEROL (NEB) 0.31 MG/3 ML AMP INH SCH ×4 (01:59→20:30)
[2019-02-18 04:00] VITALS: BP 160/80; PULSE 86; RESP 17
[2019-02-18] MEDS: PANTOPRAZOLE 40 MG INJ IV SCH ×2 (06:34→18:22)
[2019-02-18] MEDS: VALPROATE IVPB SCH ×3 (06:34→22:05)
[2019-02-18] MEDS: DEXTROSE 5% IVPB SCH ×3 (06:34→22:05)
[2019-02-18] MEDS ORDERED: SOD CHLORIDE 0.9% 250 ML IV* ONE (06:50)
[2019-02-18 07:23] VITALS: BP 134/64; PULSE 78; RESP 19
[2019-02-18] MEDS: SEVELAMER CARBONATE 0.8 GM PKT PO SCH ×3 (10:13→21:02)
[2019-02-18] MEDS: LEVETIRACETAM 500 MG (PMX) 100 ML IVPB SCH ×2 (10:13→21:03)
[2019-02-18] MEDS: SUCRALFATE (100 MG/ML) 10ML CUP PO SCH ×4 (10:14→21:02)
[2019-02-18] MEDS: LOSARTAN 25 MG TAB PO SCH ×2 (10:14→21:03)
[2019-02-18] MEDS: ASCORBIC ACID 500 MG TAB PO SCH (10:14)
[2019-02-18] MEDS: DOCUSATE SODIUM 10 MG/ML (10ML CUP) PO SCH ×2 (10:14→21:02)
[2019-02-18] MEDS: ASPIRIN 81 MG TAB PO SCH (10:14)
[2019-02-18 15:59] VITALS: BP 165/88; PULSE 81; RESP 18
[2019-02-18] MEDS: CIPROFLOXACIN 200 MG/D5W IVPB 100 ML IVPB SCH (19:07)
[2019-02-18 19:58] VITALS: BP 158/86; PULSE 78; RESP 20
[2019-02-18] MEDS: ATORVASTATIN 80 MG TAB PO SCH (21:02)
[2019-02-18] MEDS: POLYETHYLENE GLYCOL 17 GM PACKET PO SCH (21:03)
[2019-02-19] VITALS (21 sets, daily range): BP systolic 115–173; BP diastolic 65–93; PULSE 77–98; RESP 18–20
[2019-02-19] MEDS: INSULIN ASPART [NOVOLOG] 3 ML PEN SC SCH ×6 (01:00→20:31)
[2019-02-19] MEDS: LEVALBUTEROL (NEB) 0.31 MG/3 ML AMP INH SCH ×4 (01:33→20:16)
[2019-02-19] MEDS: IPRATROPIUM (NEB) 0.5 MG/2.5 ML AMP HHN SCH ×4 (01:33→20:16)
[2019-02-19] MEDS: ACCU-CHEK XX SCH (02:00)
[2019-02-19] MEDS: hydrALAzine 20 MG INJ IV PRN (03:52)
[2019-02-19] MEDS: PANTOPRAZOLE 40 MG INJ IV SCH ×2 (05:51→18:00)
[2019-02-19] MEDS: DEXTROSE 5% IVPB SCH ×3 (05:51→21:00)
[2019-02-19] MEDS: VALPROATE IVPB SCH ×3 (05:51→21:00)
[2019-02-19] MEDS: LEVETIRACETAM 500 MG (PMX) 100 ML IVPB SCH ×2 (09:05→20:26)
[2019-02-19] MEDS: ASCORBIC ACID 500 MG TAB PO SCH (09:40)
[2019-02-19] MEDS: LOSARTAN 25 MG TAB PO SCH ×2 (09:40→20:28)
[2019-02-19] MEDS: SUCRALFATE (100 MG/ML) 10ML CUP PO SCH ×4 (09:40→20:59)
[2019-02-19] MEDS: DOCUSATE SODIUM 10 MG/ML (10ML CUP) PO SCH ×2 (09:40→20:27)
[2019-02-19] MEDS: ASPIRIN 81 MG TAB PO SCH (09:40)
[2019-02-19] MEDS: SEVELAMER CARBONATE 0.8 GM PKT PO SCH ×3 (09:41→20:27)
[2019-02-19] MEDS: GENTAMICIN 80 MG/NS (PMX) 50 ML IVPB SCH (16:02)
[2019-02-19] MEDS ORDERED: PROPOFOL 20 ML ONE (18:56)
[2019-02-19] MEDS: CIPROFLOXACIN 200 MG/D5W IVPB 100 ML IVPB SCH (20:26)
[2019-02-19] MEDS: ATORVASTATIN 80 MG TAB PO SCH (20:26)
[2019-02-19] MEDS: POLYETHYLENE GLYCOL 17 GM PACKET PO SCH (20:27)
[2019-02-20] VITALS (7 sets, daily range): BP systolic 121–174; BP diastolic 56–82; PULSE 76–96; RESP 17–22
[2019-02-20] MEDS: hydrALAzine 20 MG INJ IV PRN (00:54)
[2019-02-20] MEDS: INSULIN ASPART [NOVOLOG] 3 ML PEN SC SCH ×6 (01:00→21:55)
[2019-02-20] MEDS: IPRATROPIUM (NEB) 0.5 MG/2.5 ML AMP HHN SCH ×5 (01:48→23:17)
[2019-02-20] MEDS: LEVALBUTEROL (NEB) 0.31 MG/3 ML AMP INH SCH ×3 (01:48→14:00)
[2019-02-20] MEDS: ACCU-CHEK XX SCH (02:00)
[2019-02-20] MEDS: DEXTROSE 5% IVPB SCH ×3 (05:26→21:36)
[2019-02-20] MEDS: VALPROATE IVPB SCH ×3 (05:26→21:36)
[2019-02-20] MEDS: PANTOPRAZOLE 40 MG INJ IV SCH ×2 (05:26→17:16)
[2019-02-20] MEDS: LOSARTAN 25 MG TAB PO SCH (09:00)
[2019-02-20] MEDS: SUCRALFATE (100 MG/ML) 10ML CUP PO SCH ×4 (09:38→21:34)
[2019-02-20] MEDS: DOCUSATE SODIUM 10 MG/ML (10ML CUP) PO SCH ×2 (09:38→21:00)
[2019-02-20] MEDS: SEVELAMER CARBONATE 0.8 GM PKT PO SCH ×3 (09:38→21:42)
[2019-02-20] MEDS: ASPIRIN 81 MG TAB PO SCH (09:39)
[2019-02-20] MEDS: ASCORBIC ACID 500 MG TAB PO SCH (09:39)
[2019-02-20] MEDS: LEVETIRACETAM 500 MG (PMX) 100 ML IVPB SCH ×2 (09:41→21:35)
[2019-02-20] MEDS: CIPROFLOXACIN 200 MG/D5W IVPB 100 ML IVPB SCH (18:08)
[2019-02-20] MEDS: POLYETHYLENE GLYCOL 17 GM PACKET PO SCH (21:00)
[2019-02-20] MEDS: ATORVASTATIN 80 MG TAB PO SCH (21:34)
[2019-02-21] VITALS (26 sets, daily range): BP systolic 147–180; BP diastolic 63–96; PULSE 78–88; RESP 17–21
[2019-02-21] MEDS: LOSARTAN 25 MG TAB PO SCH ×3 (01:13→21:00)
[2019-02-21] MEDS: INSULIN ASPART [NOVOLOG] 3 ML PEN SC SCH ×5 (01:23→17:00)
[2019-02-21] MEDS: ACCU-CHEK XX SCH (01:23)
[2019-02-21] MEDS: DEXTROSE 5% IVPB SCH ×2 (05:31→14:00)
[2019-02-21] MEDS: VALPROATE IVPB SCH ×2 (05:31→14:00)
[2019-02-21] MEDS: PANTOPRAZOLE 40 MG INJ IV SCH ×2 (05:31→17:53)
[2019-02-21] MEDS: DEXTROSE 5%-0.45% NACL 1,000 ML IV SCH (05:53)
[2019-02-21] MEDS ORDERED: LIDOCAINE 100 MG SYRINGE ONE (07:29)
[2019-02-21] MEDS ORDERED: PROPOFOL 40 ML ONE (07:29)
[2019-02-21] MEDS ORDERED: OXYCODONE/ACETAMINOPHEN (5/325) TAB PO PRN ×2 (07:30)
[2019-02-21] MEDS ORDERED: LABETALOL HCL 20MG INJ IV PRN (07:30)
[2019-02-21] MEDS ORDERED: IPRATROPIUM (NEB) 0.5 MG/2.5 ML AMP HHN PRN (07:30)
[2019-02-21] MEDS ORDERED: hydrALAzine 20 MG INJ IV PRN (07:30)
[2019-02-21] MEDS ORDERED: ONDANSETRON 4 MG INJ IV PRN (07:30)
[2019-02-21] MEDS ORDERED: HYDROmorphONE 1 MG/5 ML IV SYRINGE IV PRN ×3 (07:30)
[2019-02-21] MEDS ORDERED: MEPERIDINE 25 MG INJ IV PRN (07:30)
[2019-02-21] MEDS ORDERED: ALBUTEROL 0.083% (NEB) 2.5 MG/3 ML AMP HHN PRN (07:30)
[2019-02-21] MEDS ORDERED: EPHEDrine 25 MG/5 ML SYG IV PRN (07:30)
[2019-02-21] MEDS ORDERED: DIPHENHYDRAMINE 50 MG INJ IV PRN (07:30)
[2019-02-21] MEDS ORDERED: FENTAnyl 50 MCG/ML VIAL IV PRN ×3 (07:30)
[2019-02-21] MEDS ORDERED: PHENYLephrine (100 MCG/ML) 10ML SYG ONE (07:32)
[2019-02-21] MEDS: LEVALBUTEROL (NEB) 0.31 MG/3 ML AMP INH SCH ×3 (08:00→16:30)
[2019-02-21] MEDS: IPRATROPIUM (NEB) 0.5 MG/2.5 ML AMP HHN SCH ×4 (08:00→23:55)
[2019-02-21] MEDS: SUCRALFATE (100 MG/ML) 10ML CUP PO SCH ×3 (09:00→17:53)
[2019-02-21] MEDS: DOCUSATE SODIUM 10 MG/ML (10ML CUP) PO SCH ×2 (09:00→21:00)
[2019-02-21] MEDS: ASPIRIN 81 MG TAB PO SCH (09:00)
[2019-02-21] MEDS: SEVELAMER CARBONATE 0.8 GM PKT PO SCH ×2 (09:00→12:18)
[2019-02-21] MEDS: ASCORBIC ACID 500 MG TAB PO SCH (09:00)
[2019-02-21] MEDS: LEVETIRACETAM 500 MG (PMX) 100 ML IVPB SCH ×2 (09:04→21:00)
[2019-02-21] MEDS: GENTAMICIN 80 MG/NS (PMX) 50 ML IVPB SCH (17:53)
[2019-02-21] MEDS: CIPROFLOXACIN 200 MG/D5W IVPB 100 ML IVPB SCH (18:43)
[2019-02-21] MEDS: POLYETHYLENE GLYCOL 17 GM PACKET PO SCH (21:00)
[2019-02-22] MEDS: SUCRALFATE (100 MG/ML) 10ML CUP PO SCH ×5 (00:04→21:28)
[2019-02-22] MEDS: ATORVASTATIN 80 MG TAB PO SCH ×2 (00:06→21:29)
[2019-02-22] MEDS: SEVELAMER CARBONATE 0.8 GM PKT PO SCH ×4 (00:06→21:29)
[2019-02-22] MEDS: INSULIN ASPART [NOVOLOG] 3 ML PEN SC SCH ×7 (00:09→21:32)
[2019-02-22] MEDS: DEXTROSE 5% IVPB SCH ×3 (00:13→15:09)
[2019-02-22] MEDS: VALPROATE IVPB SCH ×3 (00:13→15:09)
[2019-02-22] MEDS: ACCU-CHEK XX SCH (02:04)
[2019-02-22 03:30] VITALS: BP 151/83; PULSE 87; RESP 18
[2019-02-22] MEDS: DEXTROSE 5%-0.45% NACL 1,000 ML IV SCH (05:49)
[2019-02-22] MEDS: PANTOPRAZOLE 40 MG INJ IV SCH ×2 (06:15→17:22)
[2019-02-22 07:30] VITALS: BP 154/80; PULSE 80; RESP 18
[2019-02-22] MEDS: LEVALBUTEROL (NEB) 0.31 MG/3 ML AMP INH SCH ×3 (07:52→16:00)
[2019-02-22] MEDS: IPRATROPIUM (NEB) 0.5 MG/2.5 ML AMP HHN SCH ×2 (07:52→16:00)
[2019-02-22] MEDS: DOCUSATE SODIUM 10 MG/ML (10ML CUP) PO SCH ×2 (09:03→21:28)
[2019-02-22] MEDS: LOSARTAN 25 MG TAB PO SCH ×2 (09:04→21:29)
[2019-02-22] MEDS: ASCORBIC ACID 500 MG TAB PO SCH (09:04)
[2019-02-22] MEDS: ASPIRIN 81 MG TAB PO SCH (09:04)
[2019-02-22] MEDS: LEVETIRACETAM 500 MG (PMX) 100 ML IVPB SCH (09:19)
[2019-02-22 11:53] VITALS: BP 141/69; PULSE 87; RESP 20
[2019-02-22 15:15] VITALS: BP 134/74; PULSE 90; RESP 20
[2019-02-22] MEDS: CIPROFLOXACIN 200 MG/D5W IVPB 100 ML IVPB SCH (17:38)
[2019-02-22] MEDS ORDERED: PANTOPRAZOLE (EC) 40 MG TAB PO SCH (18:00)
[2019-02-22 19:50] VITALS: BP 142/82; PULSE 96; RESP 19
[2019-02-22] MEDS: VALPROIC ACID LIQUID CUP 250 MG/5 ML CUP GTB SCH (21:28)
[2019-02-22] MEDS: LEVETIRACETAM (100 MG/ML) 5ML CUP GTB SCH (21:28)
[2019-02-22] MEDS: POLYETHYLENE GLYCOL 17 GM PACKET PO SCH (21:29)
[2019-02-23] VITALS: BP 143/70; PULSE 96; RESP 20
[2019-02-23] MEDS: LEVALBUTEROL (NEB) 0.31 MG/3 ML AMP INH SCH ×4 (00:24→23:42)
[2019-02-23] MEDS: IPRATROPIUM (NEB) 0.5 MG/2.5 ML AMP HHN SCH ×4 (00:24→23:42)
[2019-02-23] MEDS: INSULIN ASPART [NOVOLOG] 3 ML PEN SC SCH ×6 (02:07→21:38)
[2019-02-23] MEDS: ACCU-CHEK XX SCH (02:08)
[2019-02-23 04:00] VITALS: BP 135/80; PULSE 93; RESP 21
[2019-02-23] MEDS: PANTOPRAZOLE 40 MG INJ IV SCH ×2 (06:36→17:44)
[2019-02-23 07:52] VITALS: BP 138/74; PULSE 90; RESP 22
[2019-02-23] MEDS: ASPIRIN 81 MG TAB PO SCH (09:14)
[2019-02-23] MEDS: VALPROIC ACID LIQUID CUP 250 MG/5 ML CUP GTB SCH ×3 (09:14→21:35)
[2019-02-23] MEDS: DOCUSATE SODIUM 10 MG/ML (10ML CUP) PO SCH ×2 (09:14→21:35)
[2019-02-23] MEDS: ASCORBIC ACID 500 MG TAB PO SCH (09:14)
[2019-02-23] MEDS: SUCRALFATE (100 MG/ML) 10ML CUP PO SCH ×4 (09:14→21:35)
[2019-02-23] MEDS: LEVETIRACETAM (100 MG/ML) 5ML CUP GTB SCH ×2 (09:14→21:35)
[2019-02-23] MEDS: SEVELAMER CARBONATE 0.8 GM PKT PO SCH ×3 (09:15→21:36)
[2019-02-23] MEDS: LOSARTAN 25 MG TAB PO SCH ×2 (09:15→21:35)
[2019-02-23 11:04] VITALS: BP 147/76; PULSE 88; RESP 20
[2019-02-23 15:44] VITALS: BP 143/77; PULSE 92; RESP 22
[2019-02-23 20:00] VITALS: BP 158/78; PULSE 87; RESP 18
[2019-02-23] MEDS: CIPROFLOXACIN 200 MG/D5W IVPB 100 ML IVPB SCH (21:33)
[2019-02-23] MEDS: LACTOBACILLUS RHAMNOSUS CAP GTB SCH (21:34)
[2019-02-23] MEDS: ATORVASTATIN 80 MG TAB PO SCH (21:34)
[2019-02-23] MEDS: POLYETHYLENE GLYCOL 17 GM PACKET PO SCH (21:36)
[2019-02-24] VITALS (21 sets, daily range): BP systolic 100–171; BP diastolic 65–98; PULSE 86–97; RESP 18–21
[2019-02-24] MEDS: INSULIN ASPART [NOVOLOG] 3 ML PEN SC SCH ×6 (01:46→20:47)
[2019-02-24] MEDS: ACCU-CHEK XX SCH (01:49)
[2019-02-24] MEDS: PANTOPRAZOLE 40 MG INJ IV SCH ×2 (05:48→17:26)
[2019-02-24] MEDS: IPRATROPIUM (NEB) 0.5 MG/2.5 ML AMP HHN SCH ×3 (07:51→23:01)
[2019-02-24] MEDS: LEVALBUTEROL (NEB) 0.31 MG/3 ML AMP INH SCH ×3 (07:51→23:01)
[2019-02-24] MEDS: LOSARTAN 25 MG TAB PO SCH ×2 (09:00→20:45)
[2019-02-24] MEDS: LACTOBACILLUS RHAMNOSUS CAP GTB SCH ×2 (09:00→20:44)
[2019-02-24] MEDS: ASPIRIN 81 MG TAB PO SCH (09:12)
[2019-02-24] MEDS: ASCORBIC ACID 500 MG TAB PO SCH (09:12)
[2019-02-24] MEDS: SUCRALFATE (100 MG/ML) 10ML CUP PO SCH ×4 (09:14→20:44)
[2019-02-24] MEDS: SEVELAMER CARBONATE 0.8 GM PKT PO SCH ×3 (09:14→20:45)
[2019-02-24] MEDS: DOCUSATE SODIUM 10 MG/ML (10ML CUP) PO SCH ×2 (09:14→20:44)
[2019-02-24] MEDS: LEVETIRACETAM (100 MG/ML) 5ML CUP GTB SCH ×2 (09:14→20:44)
[2019-02-24] MEDS: VALPROIC ACID LIQUID CUP 250 MG/5 ML CUP GTB SCH ×3 (09:14→20:44)
[2019-02-24] MEDS: GENTAMICIN 80 MG/NS (PMX) 50 ML IVPB SCH (17:26)
[2019-02-24] MEDS: CIPROFLOXACIN 200 MG/D5W IVPB 100 ML IVPB SCH (17:58)
[2019-02-24] MEDS: ATORVASTATIN 80 MG TAB PO SCH (20:44)
[2019-02-24] MEDS: POLYETHYLENE GLYCOL 17 GM PACKET PO SCH (20:46)
[2019-02-25] VITALS: BP 122/64; PULSE 93; RESP 18
[2019-02-25] MEDS: INSULIN ASPART [NOVOLOG] 3 ML PEN SC SCH ×5 (01:16→17:33)
[2019-02-25] MEDS: ACCU-CHEK XX SCH (02:03)
[2019-02-25 04:00] VITALS: BP 148/70; PULSE 92; RESP 17
[2019-02-25] MEDS: PANTOPRAZOLE 40 MG INJ IV SCH ×2 (05:43→17:36)
[2019-02-25 07:41] VITALS: BP 134/61; PULSE 92; RESP 20
[2019-02-25] MEDS: IPRATROPIUM (NEB) 0.5 MG/2.5 ML AMP HHN SCH ×2 (08:40→16:00)
[2019-02-25] MEDS: LEVALBUTEROL (NEB) 0.31 MG/3 ML AMP INH SCH ×2 (08:40→16:00)
[2019-02-25] MEDS: SUCRALFATE (100 MG/ML) 10ML CUP PO SCH ×3 (09:54→17:36)
[2019-02-25] MEDS: DOCUSATE SODIUM 10 MG/ML (10ML CUP) PO SCH (09:54)
[2019-02-25] MEDS: ASCORBIC ACID 500 MG TAB PO SCH (09:54)
[2019-02-25] MEDS: LEVETIRACETAM (100 MG/ML) 5ML CUP GTB SCH (09:54)
[2019-02-25] MEDS: VALPROIC ACID LIQUID CUP 250 MG/5 ML CUP GTB SCH ×2 (09:54→12:01)
[2019-02-25] MEDS: SEVELAMER CARBONATE 0.8 GM PKT PO SCH ×2 (09:54→12:01)
[2019-02-25] MEDS: ASPIRIN 81 MG TAB PO SCH (09:55)
[2019-02-25] MEDS: LACTOBACILLUS RHAMNOSUS CAP GTB SCH (09:55)
[2019-02-25] MEDS: LOSARTAN 25 MG TAB PO SCH (09:55)
[2019-02-25 11:06] VITALS: BP 147/78; PULSE 95; RESP 20
[2019-02-25 15:00] VITALS: BP 121/59; PULSE 86; RESP 20
[2019-02-25] MEDS: CIPROFLOXACIN 200 MG/D5W IVPB 100 ML IVPB SCH (18:30)
== END 2019-02-25 18:55 | DRG 853 ==
LOC: E/R 06:22 → ICU 08:29 → 6WM 02-10 01:00
PROVIDERS: ADMIT Family Medicine; ATTEND Internal Medicine
PROC: 0BH17EZ Insertion of Endotracheal Airway into Trachea, Via Natural or Artificial Opening (ICD-10-PCS; principal; 2019-02-04)
PROC: 5A1955Z Respiratory Ventilation, Greater than 96 Consecutive Hours (ICD-10-PCS; 2019-02-04)
PROC: 30233N1 Transfusion of Nonautologous Red Blood Cells into Peripheral Vein, Percutaneous Approach (ICD-10-PCS; 2019-02-04)
PROC: 05HM33Z Insertion of Infusion Device into Right Internal Jugular Vein, Percutaneous Approach (ICD-10-PCS; 2019-02-04)
PROC: 5A1D70Z Performance of Urinary Filtration, Intermittent, Less than 6 Hours Per Day (ICD-10-PCS; 2019-02-05)
PROC: 0DW68UZ Revision of Feeding Device in Stomach, Via Natural or Artificial Opening Endoscopic (ICD-10-PCS; 2019-02-19)
PROC: 0DJ08ZZ Inspection of Upper Intestinal Tract, Via Natural or Artificial Opening Endoscopic (ICD-10-PCS; 2019-02-19)
DX: A41.59 Other Gram-negative sepsis (principal); G92 Toxic encephalopathy; N18.6 End stage renal disease; J96.01 Acute respiratory failure with hypoxia; I63.81 Other cerebral infarction due to occlusion or stenosis of small artery; R65.21 Severe sepsis with septic shock; N39.0 Urinary tract infection, site not specified; D62 Acute posthemorrhagic anemia; Z99.11 Dependence on respirator [ventilator] status; K62.5 Hemorrhage of anus and rectum; E46 Unspecified protein-calorie malnutrition; E87.2 Acidosis; B37.49 Other urogenital candidiasis; E11.8 Type 2 diabetes mellitus with unspecified complications; R13.19 Other dysphagia; F03.90 Unspecified dementia, unspecified severity, without behavioral disturbance, psychotic disturbance, mood disturbance, and anxiety; D63.1 Anemia in chronic kidney disease; G40.909 Epilepsy, unspecified, not intractable, without status epilepticus; Z99.2 Dependence on renal dialysis; K21.9 Gastro-esophageal reflux disease without esophagitis; E78.5 Hyperlipidemia, unspecified; D64.9 Anemia, unspecified; K80.20 Calculus of gallbladder without cholecystitis without obstruction; Z79.4 Long term (current) use of insulin; R62.7 Adult failure to thrive; Z68.23 Body mass index [BMI] 23.0-23.9, adult; E83.39 Other disorders of phosphorus metabolism; I73.9 Peripheral vascular disease, unspecified; I12.9 Hypertensive chronic kidney disease with stage 1 through stage 4 chronic kidney disease, or unspecified chronic kidney disease
CPT/HCPCS: 31500; 36415; 36430; 36600; 43762; 70450; 70498; 70551; 71045; 71275; 72156; 72157; 72158; 74176; 74177; 74230; 76705; 76942; 78226; 78306; 78806; 80048; 80053; 80061; 80076; 80164; 80202; 81001; 82140; 82550; 82553; 82607; 82746; 82803; 82962; 83036; 83605; 83735; 84100; 84155; 84165; 84443; 84484; 85014; 85018; 85025; 85049; 85610; 85670; 85730; 86592; 86703; 86850; 86870; 86900; 86901; 86902; 86920; 87070; 87081; 87086; 87340; 89220; 90935; 92523; 92526; 92610; 92611; 93005; 93306; 93308; 93312; 93880; 93931; 93970; 94002; 94003; 94640; 94664; 94770; 96365; 96375; 97110; 97163; 97167; 97530; 97535; A9503; A9537; A9570; C9113; J0360; J0692; J0744; J1450; J1580; J1815; J1953; J2001; J2250; J2270; J2370; J2405; J2597; J2765; J3010; J3370; J7030; J7040; J7042; P9016; P9047; Q9967